=== PATIENT | male | born 1980 | race Caucasian/White ===

== ENCOUNTER → 2017-06-10 | Outpatient (CLI) | payer MEDICAID ==
[~2017-06-10] MED LIST: BUSP15TA60 PO; DEXT10TA9 PO; HYDR-3454 PO; ONDA8TAB6 PO
== END ==
LOC: CARD 10:57
PROVIDERS: ATTEND Internal Medicine Cardiovascular Disease
DX: R07.89 Other chest pain (principal); E66.8 Other obesity; E78.4 Other hyperlipidemia; Z72.0 Tobacco use
CPT/HCPCS: 93306

== ENCOUNTER → 2017-06-11 | Outpatient (CLI) | payer MEDICAID, MEDICARE ==
[~2017-06-11] MED LIST changes: +CATHETER FLUSH 10 ML SYR IV PRN; +REGADENOSON 0.4 MG/5 ML SYR (LEXISCAN) IV ONE
[2017-06-11 09:40] VITALS: BP 126/72
--- NOTE | 2017-06-11 22:41 | STRESS TEST ---
DATE OF SERVICE: 06/11/2017 RESTING AND POST REGADENOSON TECHNETIUM-99M TETROFOSMIN SPECT CT IMAGING Baseline images were carried out after injection of 10.6 mCi of technetium-99m tetrofosmin. This was followed by 0.4 mg regadenoson and 31 mCi of technetium-99m tetrofosmin for stress imaging. The electrocardiogram showed sinus rhythm at baseline and it did not change significantly with the regadenoson infusion. Overall, the patient tolerated the procedure well and did not report significant symptoms. Review of images at rest and following stress did not indicate any distinct perfusion defects consistent with significant myocardial ischemia or infarction. Gated images show normal global left ventricular systolic function with normal regional wall motion. Left ventricular ejection fraction is calculated to be 62%. Left ventricular end diastolic volume is 93 mL. CONCLUSIONS: 1. No evidence of significant myocardial ischemia or infarction on this study. 2. Normal regional wall motion. 3. Normal global left ventricular systolic function with a calculated ejection fraction of 62%. Job ID: [id number] DocumentID: [id number] Dictated Date: 06/11/2017 12:59:36 [employer] Date: 06/11/2017 19:14:09 Dictated By: GEOVANNA RODRIGUEZ MD, MA, FACP, FACC,
== END ==
LOC: CARD 08:30
PROVIDERS: ATTEND Internal Medicine Cardiovascular Disease
DX: R07.89 Other chest pain (principal); E66.8 Other obesity; R78.4 Finding of other drugs of addictive potential in blood; Z72.0 Tobacco use
CPT/HCPCS: 78452; 93017

== ENCOUNTER 2018-09-19 12:40 | Emergency (ER) | payer MEDICARE, MEDICAID ==
[~2018-09-19 12:40] MED LIST changes: -CATHETER FLUSH 10 ML SYR IV PRN; -REGADENOSON 0.4 MG/5 ML SYR (LEXISCAN) IV ONE
--- OUTSIDE RECORDS SUMMARY | 2018-09-21 09:25 | XMS REPORT ---
Author Author RUFUS NOBLES [facility] Address [address] [place] [address] Care Team Providers Care Industrial Maintenance Technician Name Role Phone MALLORIE RUFUS Unavailable PROBLEMS Type Condition ICD9-CM Code WPV51-SL Code Onset Dates Condition Status SNOMED Code Problem 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.00 Active 55772440 Problem Generalized anxiety disorder 300.02 Active 03427355 Problem Nondependent tobacco use disorder 305.1 Active 386183582 Problem Routine general medical examination at health care facility V70.0 Active 428539169 Problem 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 Active 08705372 Problem Hypertension, benign I10 Active 65170542 Problem Panic disorder F41.0 Active 018418893 Problem Generalized anxiety disorder F41.1 Active 03518697 Problem ADHD, predominantly inattentive type F90.0 Active 31187414 Problem Nicotine addiction F17.200 Active 84081077 Problem Mild intellectual disability F70 Active 33275789 ALLERGIES No Information ENCOUNTERS Encounter Location Date Diagnosis [facility] [id number] [place] [address] Jul, [facility] [id number] [place] [address] 45614- 5037 Jun, [facility] [id number] [place] [address] 22468- 6779 May, [facility] [id number] [place] [address] 02669- 7004 Apr, [facility] [address] [address] Apr, Encounter for immunization Z23 [facility] [id number] [place] [address] 67254- 8055 Apr, ADHD, predominantly inattentive type F90.0 ; Panic disorder F41.0 and Mild intellectual disability F70 [facility] [address] [address] Apr, Generalized anxiety disorder F41.1 [facility] [address] [address] Feb, [facility] [id number] [place] [address] 99935- 2395 Jan, [facility] [id number] [place] [address] 87955- 0866 Jan, Nicotine addiction F17.200 [facility] [id number] [place] [address] 63104- 9257 Jan, [facility] [id number] [place] [address] 67082- 8022 Dec, [facility] [id number] [place] [address] 05916- 3652 November, [facility] [id number] [place] [address] 69483- 6506 November, Panic disorder F41.0 ; Generalized anxiety disorder F41.1 ; ADHD, predominantly inattentive type F90.0 ; Mild intellectual disability F70 and Nicotine addiction F17.200 [facility] [address] [address] November, Hypertension, benign I10 and Swelling of knee joint, left M25.462 [facility] [address] [address] 7[address] November, Hypertension, benign I10 [facility] [id number] [place] [address] 01727- 5522 November, Hypertension, benign I10 [facility] [address] [address] 6990 November, Hypertension, benign I10 ; Visit for TB skin test Z11.1 and Encounter for immunization Z23 [facility] [address] [address] Mar, [facility] [id number] [place] [address] 05220- 2705 Feb, [facility] [address] [address] 3499 November, Generalized anxiety disorder F41.1 ; ADHD, predominantly inattentive type F90.0 ; Mild intellectual disability F70 and Nicotine addiction F17.200 [facility] [address] [address] Sep, Generalized anxiety disorder F41.1 ; ADHD, predominantly inattentive type F90.0 ; Mild intellectual disability F70 and Other seasonal allergic rhinitis J30.2 [facility] [address] [address] Aug, [facility] [id number] [place] [address]112 -2421 Jul, Acute suppurative otitis media of right ear without spontaneous rupture of tympanic membrane, recurrence not specified H66.001 and Other seasonal allergic rhinitis J30.2 [facility] [id number] [place] [address] 66245- 7824 Jul, ADHD, predominantly inattentive type F90.0 and Generalized anxiety disorder F41.1 [facility] [address] [address]- 7442 Jul, [facility] [id number] [place] [address] 84638- 6157 Jun, ADHD, predominantly inattentive type F90.0 and Generalized anxiety disorder F41.1 [facility] [address] [address] Jun, ADHD, predominantly inattentive type F90.0 ; Generalized anxiety disorder F41.1 and Mild intellectual disability F70 [address] [id number] [id number] May, Dental examination Z01.20 and Generalized chronic periodontitis K05.32 [facility] [id number] [place] [address] 79535- 1361 May, ADHD, predominantly inattentive type F90.0 and Generalized anxiety disorder F41.1 [facility] [id number] [place] [address] 17064- 6553 May, [facility] [id number] [place] [address] 30244- 7554 Apr, [facility] [id number] [place] [address] 35246- 3778 Apr, Generalized anxiety disorder F41.1 ; Attention deficit disorder F90.0 and Mild mental retardation F70 [facility] [id number] [place] [address] 57945- 2951 Apr, [facility] [id number] [place] [address] 45082- 2147 Apr, ADHD, predominantly inattentive type F90.0 and Generalized anxiety disorder F41.1 [facility] [id number] [place] [address] 94094- 7547 Feb, 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.00 and Anxiety state, unspecified 300.00 [facility] [address] [address]- 3969 Feb, [facility] [id number] [place] [address] 02654- 0903 Jan, [facility] [id number] [place] [address] 77318- 5182 Jan, 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.00 ; Anxiety state, unspecified 300.00 and 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 [facility] [address] [place] [address] 97515- 2920 Jan, [facility] [id number] [place] [address] 58954- 0805 Dec, [facility] [address] [address]- 4768 November, 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 ; Generalized anxiety disorder 300.02 ; 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.00 and 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 [facility] [id number] [address]- 7396 Oct, [facility] [id number] [place] [address] 10158- 5042 Oct, [facility] [address] [address]- 9662 Sep, [facility] [id number] [place] [address] 51970- 5655 Sep, [facility] [id number] [place] [address] 89921- 0169 Aug, [facility] [id number] [place] [address] 91106- 3490 Aug, [facility] [id number] [place] [address] 502860- 5008 Jun, [facility] [id number] [address]- 4637 Jun, [facility] [address] [address]- 2451 May, [facility] [id number] [address]- 2540 May, [facility] [address] [address]- 3936 Apr, [facility] [id number] [address]- 3966 Apr, [facility] [address] [address]- 2546 Jan, [facility] [place] [facility] [address] [id number] [place] [address]- 5896 Jan, [facility] [address] [id number] [place] [address]- 6578 November, [facility] [place] [facility] [address] [id number] [place] [address]- 2766 November, [facility] [place] [facility] [address] [id number] [place] [address]- 8684 November, [facility] [place] [facility] [address] [id number] [place] [address]- 7407 November, [facility] [place] [facility] [address] [id number] [place] [address]- 5589 Oct, [facility] [place] [facility] [address] [id number] [place] [address]- 9402 Oct, [facility] [place] [facility] [address] [id number] [place] [address]- 4151 Oct, [facility] [address] [id number] [place] [address]- 2769 Oct, [facility] [place] [facility] [address] [id number] [place] [address]- 7925 Sep, [facility] [place] [facility] [address] [id number] [place] [address]- 2201 Sep, [facility] [place] [facility] [address] [id number] [place] [address]- 4074 Sep, [facility] [place] [facility] [address] [id number] [place] [address]- 0423 Sep, [facility] [place] [facility] [address] [id number] [place] [address]- 8509 Sep, [facility] [place] [facility] [address] [id number] [place] [address]- 3616 Sep, [facility] [place] [facility] [address] [id number] [place] [address]- 0600 Sep, [facility] [place] [facility] [address] [id number] [place] [address]- 0316 Sep, [facility] [place] [facility] [address] [id number] [place] [address]- 9462 Sep, [facility] [place] [facility] [address] [id number] [place] [address]- 8968 Aug, [facility] [place] [facility] [address] [id number] [place] [address]- 0406 Aug, [facility] [place] [facility] [address] [id number] [place] [address]- 5721 Aug, [facility] [place] [facility] [address] [id number] [place] [address]- 1474 Aug, [facility] [place] [facility] [address] [id number] [place] [address]- 5698 Aug, [facility] [place] [facility] [address] [id number] [place] [address]- 7788 Aug, [facility] [place] [facility] [address] [id number] [place] [address]- 4592 Aug, [facility] [place] [facility] [address] [facility] [id number] [place] [address]- 7764 Aug, [facility] [place] [facility] [address] [id number] [place] [address]- 0433 Aug, [facility] [place] [facility] [address] [id number] [place] [address]- 7448 Aug, [facility] [place] [facility] [address] [id number] [place] [address]- 2779 Aug, [facility] [place] [facility] [address] [id number] [place] [address]- 2165 Aug, [facility] [place] [facility] [address] [facility] [id number] [place] [address]- 5209 Oct, [facility] [place] [facility] [address] [facility] [id number] [place] [address]- 3226 November, [facility] [address] [facility] [id number] [address]- 9246 May, [facility] [address] [facility] [id number] [place] [address]- 5566 Jan, [facility] [address] [facility] [id number] [place] [address]- 1348 May, IMMUNIZATIONS No Known Immunizations SOCIAL HISTORY Never Assessed REASON FOR VISIT adderall 07/15/2018 PLAN OF CARE VITAL SIGNS MEDICATIONS Medication Instructions Dosage Frequency Start Date End Date Duration Status Adderall 10 mg Orally 2 times a day for ADHD 1 tablet Jun, 28 days Active RESULTS No Results PROCEDURES No Known procedures INSTRUCTIONS MEDICATIONS ADMINISTERED No Known Medications MEDICAL (GENERAL) HISTORY Type Description Date Medical History Vasectomy Medical History 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; [facility]; [facility]
--- OUTSIDE RECORDS SUMMARY | 2018-09-21 09:26 | XMS REPORT ---
Author Author RUFUS NOBLES [facility] Address [address] [place] [address] Care Team Providers Care Airframe Technical Officer Name Role Phone MALLORIESAVRUFUS Unavailable PROBLEMS Type Condition ICD9-CM Code ZRH74-GE Code Onset Dates Condition Status SNOMED Code Problem 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.00 Active 65171933 Problem Generalized anxiety disorder 300.02 Active 23551432 Problem Nondependent tobacco use disorder 305.1 Active 538985164 Problem Routine general medical examination at health care facility V70.0 Active 937939618 Problem 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 Active 56945601 Problem Hypertension, benign I10 Active 54423634 Problem Panic disorder F41.0 Active 004020776 Problem Generalized anxiety disorder F41.1 Active 23420926 Problem ADHD, predominantly inattentive type F90.0 Active 09842228 Problem Nicotine addiction F17.200 Active 24200815 Problem Mild intellectual disability F70 Active 43863295 ALLERGIES No Information ENCOUNTERS Encounter Location Date Diagnosis [place] [address] [address] Jul, [facility] [place] [address] [place] [id number] [place] [address]- [address]59 May, [facility] [place] [id number] [place] [address]48- 8311 Apr, [facility] [place] [id number] [place] [address]18- 2233 Apr, Encounter for immunization Z23 [facility] [place] [address] [address] Apr, ADHD, predominantly inattentive type F90.0 ; Panic disorder F41.0 and Mild intellectual disability F70 [place] [address] [address]- 1997 Apr, Generalized anxiety disorder F41.1 [facility] [place] [address] [address] Feb, [facility] [place] [id number] [place] [address]352- 7537 Jan, [facility] [place] [address] [place] [address]32- 9103 Jan, Nicotine addiction F17.200 [facility] [place] [id number] [place] [address]184- 3135 Jan, [facility] [place] [id number] [place] [address] 62058- 6442 Dec, [facility] [place] [id number] [place] [address] 08457- 4871 November, [facility] [place] [id number] [place] [address] 56756- 4737 November, Panic disorder F41.0 ; Generalized anxiety disorder F41.1 ; ADHD, predominantly inattentive type F90.0 ; Mild intellectual disability F70 and Nicotine addiction F17.200 [facility] [place] [address] [place] [address]- 1967 November, Hypertension, benign I10 and Swelling of knee joint, left M25.462 [facility] [place] [address] [address] November, Hypertension, benign I10 [facility] [place] [address] [address] November, Hypertension, benign I10 [facility] [place] [id number] [place] [address] 49738- 9373 November, Hypertension, benign I10 ; Visit for TB skin test Z11.1 and Encounter for immunization Z23 [facility] [place] [address] [address] Mar, [place] [address] [address] Feb, [facility] [place] [id number] [place] [address] 30856- 5321 November, Generalized anxiety disorder F41.1 ; ADHD, predominantly inattentive type F90.0 ; Mild intellectual disability F70 and Nicotine addiction F17.200 [place] [address] [place] [address] 52191- 0718 Sep, Generalized anxiety disorder F41.1 ; ADHD, predominantly inattentive type F90.0 ; Mild intellectual disability F70 and Other seasonal allergic rhinitis J30.2 [facility] [place] [address] [place] [address]79- 6877 Aug, [facility] [address] [address] Jul, Acute suppurative otitis media of right ear without spontaneous rupture of tympanic membrane, recurrence not specified H66.001 and Other seasonal allergic rhinitis J30.2 [facility] [place] [address] [address] Jul, ADHD, predominantly inattentive type F90.0 and Generalized anxiety disorder F41.1 [place] [address] [address] Jul, [place] [address] [address] Jun, ADHD, predominantly inattentive type F90.0 and Generalized anxiety disorder F41.1 [facility] [place] [address] [address] Jun, ADHD, predominantly inattentive type F90.0 ; Generalized anxiety disorder F41.1 and Mild intellectual disability F70 [facility] [address] [id number] [id number] May, Dental examination Z01.20 and Generalized chronic periodontitis K05.32 [facility] [place] [address] [address] May, ADHD, predominantly inattentive type F90.0 and Generalized anxiety disorder F41.1 [facility] [place] [address] [address]- [address] May, [facility] [place] [address] [address] 8377 Apr, [facility] [place] [id number] [place] [address] 84926- 5316 Apr, Generalized anxiety disorder F41.1 ; Attention deficit disorder F90.0 and Mild mental retardation F70 [facility] [place] [id number] [place] [address] 71832- 4401 Apr, [facility] [place] [id number] [place] [address] 72220- 9477 Apr, ADHD, predominantly inattentive type F90.0 and Generalized anxiety disorder F41.1 [facility] [place] [address] [address] Feb, 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.00 and Anxiety state, unspecified 300.00 [facility] [place] [address] [address]- 9146 Feb, [facility] [place] [address], [place] [address]- 3814 Jan, [facility] [place] [address] [address]- 9097 Jan, 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.00 ; Anxiety state, unspecified 300.00 and 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 [facility] [place] [address] [address]- [address] Jan, [facility] [place] [address] [address]- 2696 Dec, [facility] [place] [address] [place] [address] 99072- 0839 November, 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 ; Generalized anxiety disorder 300.02 ; 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.00 and 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 [facility] [place] [address] [address] Oct, [facility] [address], [place] [address] 2546 Oct, [facility] [address] [place] [address] 63164- 4426 Sep, [facility] [address], [place] [address]- 1566 Sep, [facility] [address], [place] [address]- 5846 Aug, [facility] [place] [address] [address]- 6[address] Aug, [facility] [address] [address]- 7394 Jun, [facility] [place] [address] [address]- 3167 Jun, [facility] [address] [address]- 2546 May, [facility] [place] [address], [place] [address]- 5566 May, [facility] [address], [place] [address]- 2546 Apr, [facility] [address], [place] [address]- 2546 Apr, [facility] [address], [place] [address]- 2546 Jan, [facility] [address], [place] [address]- 2546 Jan, [facility] [address] [id number] [place] [address]- 3136 November, [facility] [address] [id number] [place] [address]- 9965 November, [facility] [place] [facility] [address] [id number] [place] [address]- 8786 November, [facility] [place] [facility] [address] [id number] [place] [address]- 8818 November, [facility] [place] [facility] [address] [id number] [place] [address]- 4485 Oct, [facility] [place] [facility] [address] [id number] [place] [address]- 9397 Oct, [facility] [place] [facility] [address] [id number] [place] [address]- 6020 Oct, [facility] [place] [facility] [address] [id number] [place] [address]- 1985 Oct, [facility] [address] [id number] [place] [address]- 2687 Sep, [facility] [place] [facility] [address] [id number] [place] [address]- 9137 Sep, [facility] [place] [facility] [address] [id number] [place] [address]- 8263 Sep, [facility] [place] [facility] [address] [id number] [place] [address]- 2865 Sep, [facility] [place] [facility] [address] [id number] [place] [address]- 6229 14 Sep, 2013 [facility] [place] [facility] [address] [id number] [place] [address]- 0017 Sep, [facility] [place] [facility] [address] [id number] [place] [address]- 6436 Sep, [facility] [place] [facility] [address] [id number] [place] [address]- 7790 Sep, [facility] [place] [facility] [address] [id number] [place] [address]- 9388 Sep, [facility] [place] [facility] [address] [id number] [place] [address]- 7913 Aug, [facility] [place] [facility] [address] [id number] [place] [address]- 6104 Aug, [facility] [place] [facility] [address] [id number] [place] [address]- 1851 Aug, [facility] [place] [facility] [address] [id number] [place] [address]- 0255 Aug, [facility] [place] [facility] [address] [id number] [place] [address]- 7138 Aug, [facility] [place] [facility] [address] [id number] [place] [address]- 9918 Aug, [facility] [place] [facility] [address] [id number] [place] [address]- 5226 Aug, [facility] [place] [facility] [address] [id number] [place] [address]- 3726 Aug, [facility] [place] [facility] [address] [facility] [id number] [place] [address]- 1333 Aug, [facility] [place] [facility] [address] [id number] [place] [address]- 8047 Aug, [facility] [place] [facility] [address] [facility] [id number] [place] [address]- 2546 Aug, [facility] [place] [facility] [address] [id number] [place] [address]- 5111 Aug, [facility] [place] [facility] [address] [id number] [place] [address]- 1369 Oct, [facility] [place] [facility] [address] [facility] [id number] [place] [address]- 6287 November, [facility] [place] [facility] [address] [facility] [id number] [place] [address]- 2353 May, [facility] [place] [address] [facility] [id number] [address]- 9161 Jan, [facility] [place] [address] [facility] [id number] [place] [address] May, IMMUNIZATIONS No Known Immunizations SOCIAL HISTORY Never Assessed REASON FOR VISIT adderall 05/20/2018 PLAN OF CARE VITAL SIGNS MEDICATIONS Medication Instructions Dosage Frequency Start Date End Date Duration Status Adderall 10 mg Orally 2 times a day for ADHD 1 tablet Apr, 28 days Active RESULTS No Results PROCEDURES No Known procedures INSTRUCTIONS MEDICATIONS ADMINISTERED No Known Medications MEDICAL (GENERAL) HISTORY Type Description Date Medical History Vasectomy Medical History 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
--- OUTSIDE RECORDS SUMMARY | 2018-09-21 09:26 | XMS REPORT ---
Author Author RUFUS NOBLES [facility] Address [address] [place] [address] Care Team Providers Care Ict Development Manager Name Role Phone [email or web address] Unavailable PROBLEMS Type Condition ICD9-CM Code JDR29-YH Code Onset Dates Condition Status SNOMED Code Problem 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.00 Active 84942765 Problem Generalized anxiety disorder 300.02 Active 26572469 Problem Nondependent tobacco use disorder 305.1 Active 481636710 Problem Routine general medical examination at health care facility V70.0 Active 326798372 Problem 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 Active 89730482 Problem Hypertension, benign I10 Active 71194918 Problem Panic disorder F41.0 Active 653671327 Problem Generalized anxiety disorder F41.1 Active 70832892 Problem ADHD, predominantly inattentive type F90.0 Active 86300898 Problem Nicotine addiction F17.200 Active 10547225 Problem Mild intellectual disability F70 Active 39300417 ALLERGIES No Information ENCOUNTERS Encounter Location Date Diagnosis [place] [address] [address] Jul, [place] [address] [place] [id number] [place] [address] May, [facility] [address] [id number] [place] [address]64- 0446 Apr, [facility] [address] [place] [id number] [place] [address]6957- 6841 Apr, Encounter for immunization Z23 [facility] [address] [address] Apr, ADHD, predominantly inattentive type F90.0 ; Panic disorder F41.0 and Mild intellectual disability F70 [place] [address] [address] Apr, Generalized anxiety disorder F41.1 [facility] [address] [address] Feb, [facility] [address] [place] [id number] [place] [address] 279[address]- 5471 Jan, [facility] [id number] [place] [address]- 1849 Jan, Nicotine addiction F17.200 [facility] [address] [place] [id number] [place] [address]- 8024 Jan, [facility] [address] [place] [id number] [place] [address] 70609- 9057 Dec, [facility] [address] [place] [id number] [place] [address] 69775- 1485 November, [facility] [address] [place] [id number] [place] [address]- 8500 November, Panic disorder F41.0 ; Generalized anxiety disorder F41.1 ; ADHD, predominantly inattentive type F90.0 ; Mild intellectual disability F70 and Nicotine addiction F17.200 [facility] [id number] [place] [address]- 6045 November, Hypertension, benign I10 and Swelling of knee joint, left M25.462 [facility] [address] [address] November, Hypertension, benign I10 [facility] [address] [address] 7[address] November, Hypertension, benign I10 [facility] [address] [place] [id number] [place] [address] 52031- 8945 November, Hypertension, benign I10 ; Visit for TB skin test Z11.1 and Encounter for immunization Z23 [facility] [address] [address] Mar, [place] [address] [address] 8[address] Feb, [facility] [address] [place] [id number] [place] [address] 59046- 2055 November, Generalized anxiety disorder F41.1 ; ADHD, predominantly inattentive type F90.0 ; Mild intellectual disability F70 and Nicotine addiction F17.200 [place] [id number] [place] [address]74- 8659 Sep, Generalized anxiety disorder F41.1 ; ADHD, predominantly inattentive type F90.0 ; Mild intellectual disability F70 and Other seasonal allergic rhinitis J30.2 [facility] [id number] [place] [address]58- 8058 Aug, [facility] [address] [address] Jul, Acute suppurative otitis media of right ear without spontaneous rupture of tympanic membrane, recurrence not specified H66.001 and Other seasonal allergic rhinitis J30.2 [facility] [address] [address] Jul, ADHD, predominantly inattentive type F90.0 and Generalized anxiety disorder F41.1 [place] [address] [address]- [address] Jul, [place] [address] [address] Jun, ADHD, predominantly inattentive type F90.0 and Generalized anxiety disorder F41.1 [facility] [address] [address] 140[address] Jun, ADHD, predominantly inattentive type F90.0 ; Generalized anxiety disorder F41.1 and Mild intellectual disability F70 [facility] [address] [id number] [id number] May, Dental examination Z01.20 and Generalized chronic periodontitis K05.32 [facility] [address] [address] May, ADHD, predominantly inattentive type F90.0 and Generalized anxiety disorder F41.1 [facility] [address] [address]- 0320 May, [facility] [address] [address]- 44[address] Apr, [facility] [address] [place] [id number] [place] [address]- 1969 Apr, Generalized anxiety disorder F41.1 ; Attention deficit disorder F90.0 and Mild mental retardation F70 [facility] [address] [place] [id number] [place] [address] 01541- 4546 Apr, [facility] [address] [place] [id number] [place] [address] 91457- 7438 Apr, ADHD, predominantly inattentive type F90.0 and Generalized anxiety disorder F41.1 [facility] [address] [address] Feb, 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.00 and Anxiety state, unspecified 300.00 [facility] [address] [address]- 8678 Feb, [facility] [address] [address]- 1031 Jan, [facility] [address] [address]- [address] Jan, 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.00 ; Anxiety state, unspecified 300.00 and 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 [facility] [address] [address]- 2821 Jan, [facility] [address] [address]- 0207 Dec, [facility] [address] [place] [address]90- 9437 November, 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 ; Generalized anxiety disorder 300.02 ; 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.00 and 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 [facility] [address] [address]- [address] Oct, [facility] [address] [address] 2546 Oct, [facility] [id number] [place] [address] 74265- 9406 Sep, [facility] [address] [address]- 7[address] Sep, [facility] [address] [address]- 4936 Aug, [facility] [address] [place] [address] [id number] [address]- 6056 Aug, [facility] [address] [place] [id number] [address]- 6284 Jun, [facility] [address] [address]- 5433 Jun, [facility] [address] [address]- 2546 May, [facility] [address] [address]- 6826 May, [facility] [address] [address]- 2546 Apr, [facility] [address] [address]- 2546 Apr, [facility] [address] [address]- 2546 Jan, [facility] [address] [address]- 2546 Jan, [facility] [address] [id number] [place] [address]- 2686 November, [facility] [address] [id number] [place] [address]- 5600 November, [facility] [place] [facility] [address] [id number] [place] [address]- 2346 November, [facility] [place] [facility] [address] [id number] [place] [address]- 7965 November, [facility] [place] [facility] [address] [id number] [place] [address]- 4628 Oct, [facility] [place] [facility] [address] [id number] [place] [address]- 5481 Oct, [facility] [place] [facility] [address] [id number] [place] [address]- 3601 Oct, [facility] [place] [facility] [address] [id number] [place] [address]- 4449 Oct, [facility] [address] [id number] [place] [address]- 4163 Sep, [facility] [place] [facility] [address] [id number] [place] [address]- 0559 Sep, [facility] [place] [facility] [address] [id number] [place] [address]- 1031 Sep, [facility] [place] [facility] [address] [id number] [place] [address]- 3546 Sep, [facility] [place] [facility] [address] [id number] [place] [address]- 7879 14 Sep, 2013 [facility] [place] [facility] [address] [id number] [place] [address]- 9354 Sep, [facility] [place] [facility] [address] [id number] [place] [address]- 3276 Sep, [facility] [place] [facility] [address] [id number] [place] [address]- 1167 Sep, [facility] [place] [facility] [address] [id number] [place] [address]- 6216 Sep, [facility] [place] [facility] [address] [id number] [place] [address]- 0188 Aug, [facility] [place] [facility] [address] [id number] [place] [address]- 8437 Aug, [facility] [place] [facility] [address] [id number] [place] [address]- 7698 Aug, [facility] [place] [facility] [address] [id number] [place] [address]- 1108 Aug, [facility] [place] [facility] [address] [id number] [place] [address]- 9809 Aug, [facility] [place] [facility] [address] [id number] [place] [address]- 9001 Aug, [facility] [place] [facility] [address] [id number] [place] [address]- 8840 Aug, [facility] [place] [facility] [address] [id number] [place] [address]- 2339 Aug, [facility] [place] [facility] [address] [facility] [id number] [place] [address]- 2227 Aug, [facility] [place] [facility] [address] [id number] [place] [address]- 3926 Aug, [facility] [place] [facility] [address] [facility] [id number] [place] [address]- 5997 Aug, [facility] [place] [facility] [address] [id number] [place] [address]- 0280 Aug, [facility] [place] [facility] [address] [id number] [place] [address]- 8898 Oct, [facility] [place] [facility] [address] [facility] [id number] [place] [address]- 7601 November, [facility] [place] [facility] [address] [facility] [id number] [place] [address]- 7176 May, [facility] [address] [facility] [id number] [address] Jan, [facility] [address] 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
--- OUTSIDE RECORDS SUMMARY | 2018-09-21 09:26 | XMS REPORT ---
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 Active 79490429 Problem Hypertension, benign I10 Active 24103800 Problem Panic disorder F41.0 Active 970007771 Problem Generalized anxiety disorder F41.1 Active 35293011 Problem ADHD, predominantly inattentive type F90.0 Active 63971878 Problem Nicotine addiction F17.200 Active 94242914 Problem Mild intellectual disability F70 Active 14388741 ALLERGIES No Information ENCOUNTERS Encounter Location Date Diagnosis [facility] [id number] [place] [address] 33723- 2443 Jul, [facility] [id number] [place] [address] 56471- 4776 May, [facility] [id number] [place] [address] 14230- 7140 Apr, Encounter for immunization Z23 [facility] [id number] [place] [address] 12597- 0516 Apr, ADHD, predominantly inattentive type F90.0 ; Panic disorder F41.0 and Mild intellectual disability F70 [facility] [id number] [place] [address] 21245- 0391 Apr, Generalized anxiety disorder F41.1 [place] [id number] [address] Feb, [facility] [address] [address] Jan, [facility] [address] [address] 9377 Jan, Nicotine addiction F17.200 [facility] [id number] [place] [address] 60821- 2938 Jan, [facility] [id number] [place] [address] 17109- 1308 Dec, [facility] [id number] [place] [address] 37878- 3156 November, [facility] [id number] [place] [address] 32522- 7219 November, Panic disorder F41.0 ; Generalized anxiety disorder F41.1 ; ADHD, predominantly inattentive type F90.0 ; Mild intellectual disability F70 and Nicotine addiction F17.200 [facility] [address] [address] 7[address] November, Hypertension, benign I10 and Swelling of knee joint, left M25.462 [facility] [address] [address] 8[address] November, Hypertension, benign I10 [facility] [id number] [address] 9763 November, Hypertension, benign I10 [facility] [address] [address] 8060 November, Hypertension, benign I10 ; Visit for TB skin test Z11.1 and Encounter for immunization Z23 [facility] [address] [address] Mar, [facility] [address] [address] 8153 Feb, [facility] [address] [address] 1715 November, Generalized anxiety disorder F41.1 ; ADHD, predominantly inattentive type F90.0 ; Mild intellectual disability F70 and Nicotine addiction F17.200 [facility] [address] [address] 7852 Sep, Generalized anxiety disorder F41.1 ; ADHD, predominantly inattentive type F90.0 ; Mild intellectual disability F70 and Other seasonal allergic rhinitis J30.2 [facility] [address] [address] Aug, [facility] [id number] [place] [address] 74082 -3043 Jul, Acute suppurative otitis media of right ear without spontaneous rupture of tympanic membrane, recurrence not specified H66.001 and Other seasonal allergic rhinitis J30.2 [place] [id number] [place] [address] 34108- 5355 Jul, ADHD, predominantly inattentive type F90.0 and Generalized anxiety disorder F41.1 [place] [id number] [place] [address] 80640- 8471 Jul, [place] [id number] [place] [address] 20291- 2707 Jun, ADHD, predominantly inattentive type F90.0 and Generalized anxiety disorder F41.1 [facility] [address] [address] 1204 Jun, ADHD, predominantly inattentive type F90.0 ; Generalized anxiety disorder F41.1 and Mild intellectual disability F70 [address] [id number] [id number] May, Dental examination Z01.20 and Generalized chronic periodontitis K05.32 [facility] [address] [address] 9203 May, ADHD, predominantly inattentive type F90.0 and Generalized anxiety disorder F41.1 [facility] [address] [address] 5184 May, [facility] [id number] [place] [address] 95449- 9398 Apr, [facility] [id number] [place] [address] 26188- 6325 Apr, Generalized anxiety disorder F41.1 ; Attention deficit disorder F90.0 and Mild mental retardation F70 [facility] [id number] [place] [address] 20289- 5795 Apr, [facility] [id number] [place] [address] 61457- 1274 Apr, ADHD, predominantly inattentive type F90.0 and Generalized anxiety disorder F41.1 [facility] [id number] [place] [address] 74528- 4404 Feb, 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.00 and Anxiety state, unspecified 300.00 [facility] [address] [address] 9152 Feb, [facility] [address] [place] [address] 90117- 7757 Jan, [facility] [address] [address]- 1093 Jan, 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.00 ; Anxiety state, unspecified 300.00 and 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 [facility] [address] [address]- 5052 Jan, [facility] [id number] [place] [address] 01523- 7179 Dec, [facility] [address] [address] 0197 November, 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 ; Generalized anxiety disorder 300.02 ; 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.00 and 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 [facility] [address] [address] 78[address] 14 Oct, 2014 [facility] [id number] [address] 5933 Oct, [facility] [address], [place] [address] 8778 Sep, [facility] [address] [facility] [id number] [place] [address] 75352- 8952 Sep, [facility] [id number] [place] [address] 91045- 3559 Aug, [facility] [id number] [place] [address] 87411- 1736 Aug, [facility] [id number] [place] [address] 40168- 0070 Jun, [facility] [address], [place] [address]- 9169 Jun, [facility] [address] [address]- 4244 May, [facility] [address] 9418 May, [facility] [address], [place] [address]- 3650 Apr, [facility] [id number] [address]- 2319 Apr, [facility] [address], [place] [address]- 3110 Jan, [facility] [id number] [address]- 5744 Jan, [facility] [address], [place] [address]- 2344 November, [facility] [place] [facility] [address] [id number] [place] [address]- 0471 November, [facility] [place] [facility] [address] [id number] [place] [address]- 7731 November, [facility] [place] [facility] [address] [id number] [place] [address]- 2731 November, [facility] [place] [facility] [address] [id number] [place] [address]- 7580 Oct, [facility] [place] [facility] [address] [id number] [place] [address]- 9168 Oct, [facility] [place] [facility] [address] [id number] [place] [address]- 2124 Oct, [facility] [place] [facility] [address] [id number] [place] [address]- 7152 Oct, [facility] [place] [facility] [address] [id number] [place] [address]- 2520 Sep, [facility] [place] [facility] [address] [id number] [place] [address]- 2202 Sep, [facility] [place] [facility] [address] [id number] [place] [address]- 1417 Sep, [facility] [place] [facility] [address] [id number] [place] [address]- 3387 Sep, [facility] [place] [facility] [address] [id number] [place] [address]- 6273 14 Sep, 2013 [facility] [place] [facility] [address] [id number] [place] [address]- 2810 10 Sep, 2013 [facility] [place] [facility] [address] [id number] [place] 8317 10 Sep, 2013 [facility] [place] [facility] [address] [id number] [place] [address]- 2537 03 Sep, 2013 [facility] [place] [facility] [address] [id number] [place] [address]- 5801 Sep, [facility] [place] [facility] [address] [id number] [place] [address]- 9290 Aug, [facility] [place] [facility] [address] [id number] [place] [address]- 3496 Aug, [facility] [place] [facility] [address] [facility] [id number] [place] [address]- 4039 Aug, [facility] [place] [facility] [address] [id number] [place] [address]- 6878 Aug, [facility] [place] [facility] [address] [id number] [place] [address]- 3181 Aug, [facility] [place] [facility] [address] [facility] [id number] [place] [address]- 4406 Aug, [facility] [place] [facility] [address] [facility] [id number] [place] [address]- 9606 Aug, [facility] [place] [facility] [address] [facility] [id number] [place] [address]- 5632 Aug, [facility] [place] [facility] [address] [facility] [id number] [place] [address]- 0870 Aug, [facility] [place] [facility] [address] [facility] [id number] [place] [address]- 5077 Aug, [facility] [place] [facility] [address] [facility] [id number] [place] [address]- 7775 Aug, [facility] [place] [facility] [address] [facility] [id number] [place] [address]- 0308 Aug, [facility] [place] [facility] [address] [facility] [id number] [place] [address]- 1877 Oct, [facility] [place] [facility] [address] [facility] [id number] [place] [address]- 0726 November, [facility] [place] [facility] [address] [facility] [id number] [address]- 9648 May, [facility] [address] [facility] [id number], [place] [address]- 2616 Jan, [facility] [address] [facility] [id number] 9643 May, IMMUNIZATIONS No Known Immunizations SOCIAL HISTORY Never Assessed REASON FOR VISIT INTAKE PLAN OF CARE Activity Details Follow Up Next Available Reason: F/U VITAL SIGNS MEDICATIONS Medication Instructions Dosage Frequency Start Date End Date Duration Status Zyrtec Allergy 10 mg Orally Once a day for allergies 1 capsule as needed Sep, Active Toprol XL 25 MG Orally Once a day for panic 1 tablet Sep, Active Chantix 1 MG Orally Twice a day 1 tablet 12h Jan, 30 day(s) Active Vitamin D3 2000 UNIT Orally Once a day 1 capsule 24h November, Jun, 30 day(s) Not-Taking BuPROPion HCl ER (SR) 150 MG Orally Once a day 1 tablet 24h November, Not-Taking Daypro 600 MG Orally 2 times a day 1 tablet 12h November, 30 days Not-Taking Adderall 10 mg Orally 2 times a day 1 tablet 12h Feb, 28 days Active RESULTS No Results PROCEDURES Procedure Date Ordered Result Body Site [facility] VISIT MENTAL HEALTH ESTAB PT Apr 22, 2018 Psych diagnostic evaluation, established patient Apr 22, 2018 visit needs to be added to the same day medical Apr 22, 2018 INSTRUCTIONS MEDICATIONS ADMINISTERED No Known Medications MEDICAL (GENERAL) HISTORY Type Description Date Medical History Vasectomy Medical History 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
--- OUTSIDE RECORDS SUMMARY | 2018-09-21 09:27 | XMS REPORT ---
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 Active 89568263 Problem Hypertension, benign I10 Active 08672424 Problem Panic disorder F41.0 Active 224194977 Problem Generalized anxiety disorder F41.1 Active 39619383 Problem ADHD, predominantly inattentive type F90.0 Active 80146818 Problem Nicotine addiction F17.200 Active 23311366 Problem Mild intellectual disability F70 Active 94729559 ALLERGIES No Information ENCOUNTERS Encounter Location Date Diagnosis [facility], [place] [id number] [place] [address] 48752- 5153 Apr, [facility], [place] [address] [place] [address] 27271- 0860 Apr, [facility], [place] [id number] [place] [address] 24879- 7831 Feb, [facility], [place] [id number] [place] [address] 38163- 1758 Jan, [facility], [place] [id number] [place] [address] 06782- 4651 Jan, Nicotine addiction F17.200 [facility], [place] [address], [place] [address] 8839 Jan, [facility], [place] [address] [place] [address] 5443 Dec, [place] [id number] [place] [address] 54524- 0231 November, [facility] [id number] [place] [address] 01937- 6568 November, Panic disorder F41.0 ; Generalized anxiety disorder F41.1 ; ADHD, predominantly inattentive type F90.0 ; Mild intellectual disability F70 and Nicotine addiction F17.200 [place] [id number] [place] [address] 72238- 7746 November, Hypertension, benign I10 and Swelling of knee joint, left M25.462 [place] [id number] [place] [address] 48041- 9920 November, Hypertension, benign I10 [place] [id number] [place] [address] 17863- 0753 November, Hypertension, benign I10 [place] [id number] [place] [address] 69911- 3150 November, Hypertension, benign I10 ; Visit for TB skin test Z11.1 and Encounter for immunization Z23 [place] [address] [place] [address] 61984- 4322 Mar, [place] [id number] [place] [address] 78540- 1967 Feb, [place] [id number] [place] [address] 99539- 4644 November, Generalized anxiety disorder F41.1 ; ADHD, predominantly inattentive type F90.0 ; Mild intellectual disability F70 and Nicotine addiction F17.200 [place] [address] [address] 6616 Sep, Generalized anxiety disorder F41.1 ; ADHD, predominantly inattentive type F90.0 ; Mild intellectual disability F70 and Other seasonal allergic rhinitis J30.2 [place] [address] [address] 4982 Aug, [facility] [address] [place] [address] 32211 -5151 Jul, Acute suppurative otitis media of right ear without spontaneous rupture of tympanic membrane, recurrence not specified H66.001 and Other seasonal allergic rhinitis J30.2 [facility], [place] [address] [place] [address] 56354- 2647 Jul, ADHD, predominantly inattentive type F90.0 and Generalized anxiety disorder F41.1 [place] [address] [place] [address] 79777- 3609 Jul, [facility], [place] [id number] [place] [address] 90173- 6850 Jun, ADHD, predominantly inattentive type F90.0 and Generalized anxiety disorder F41.1 [place] [address] [place] [address] 04093- 5060 Jun, ADHD, predominantly inattentive type F90.0 ; Generalized anxiety disorder F41.1 and Mild intellectual disability F70 [place] [id number] [address] May, Dental examination Z01.20 and Generalized chronic periodontitis K05.32 [place] [address] [place] [address] 80089- 1233 May, ADHD, predominantly inattentive type F90.0 and Generalized anxiety disorder F41.1 [facility], [place] [address] [place] [address] 65824- 0103 May, [place] [id number] [place] [address] 68696- 7348 Apr, [facility], [place] [address] [place] [address] 81025- 6862 Apr, Generalized anxiety disorder F41.1 ; Attention deficit disorder F90.0 and Mild mental retardation F70 [place] [address] [address] 7130 Apr, [facility], [place] [id number] [place] [address] 77329- 9352 Apr, ADHD, predominantly inattentive type F90.0 and Generalized anxiety disorder F41.1 [facility], [place] [id number] [place] [address] 875324- 6335 Feb, 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.00 and Anxiety state, unspecified 300.00 [facility], [place] [id number] [place] [address] 47619- 5420 Feb, [facility], [place] [id number] [place] [address] 44874- 1915 Jan, [facility], [place] [id number] [place] [address] 91258- 0769 Jan, 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.00 ; Anxiety state, unspecified 300.00 and 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 [facility], [place] [address] [place] [address] 15051- 2744 Jan, [facility], [place] [id number] [place] [address] 85747- 1319 Dec, [facility], [place] [address], [place] [address]- 8637 November, 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 ; Generalized anxiety disorder 300.02 ; 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.00 and 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 [facility], [place] [address] [place] [address]- 6792 Oct, [facility], [place] [id number] [place] [address] 82402860- 3614 Oct, [facility], [place] [address] 8845 Sep, [facility], [place] [id number] [place] [address] 74346- 2146 Sep, [facility] [place] [facility] [address] [id number] [place] [address]- 0296 Aug, [facility] [place] [facility] [address] [id number] [place] [address]- 3216 Aug, [facility] [place] [facility] [address] [id number] [place] [address]- 4329 Jun, [facility] [place] [facility] [address] [id number] [place] [address]- 8317 Jun, [facility] [place] [facility] [address] [id number] [place] [address]- 2977 May, [facility] [place] [facility] [address] [id number] [place] [address]- 0938 May, [facility] [place] [facility] [address] [id number] [place] [address]- 4605 Apr, [facility] [place] [facility] [address] [id number] [place] [address]- 3617 Apr, [facility] [place] [facility] [address] [id number] [place] [address]- 7999 Jan, [facility] [place] [facility] [address] [id number] [place] [address]- 8925 Jan, [facility] [place] [facility] [address] [id number] [place] [address]- 5747 November, [facility] [place] [facility] [address] [id number] [place] [address]- 6990 November, [facility] [place] [facility] [address] [id number] [place] [address]- 9991 November, [facility] [place] [facility] [address] [id number] [place] [address]- 7520 November, [facility] [place] [facility] [address] [id number] [place] [address]- 5591 Oct, [facility] [place] [facility] [address] [id number] [place] [address]- 9969 Oct, [facility] [address] [id number] [place] [address]- 5856 Oct, [facility] [place] [facility] [address] [id number] [place] [address]- 0856 Oct, [facility] [address] [id number] [place] [address]- 5475 Sep, [facility] [place] [facility] [address] [id number] [place] [address]- 4116 Sep, [facility] [place] [facility] [address] [id number] [place] [address]- 2665 Sep, [facility] [place] [facility] [address] [id number] [place] [address]- 9662 Sep, [facility] [place] [facility] [address] [id number] [place] [address]- 7458 Sep, [facility] [address] [id number] [place] [address]- 9568 Sep, [facility] [place] [facility] [address] [id number] [place] [address]- 1776 Sep, [facility] [address] [id number] [place] [address]- 3390 Sep, [facility] [place] [facility] [address] [id number] [place] [address]- 6861 Sep, [facility] [place] [facility] [address] [id number] [place] [address]- 0847 Aug, [facility] [place] [facility] [address] [id number] [place] [address]- 1314 Aug, [facility] [place] [facility] [address] [id number] [place] [address]- 2886 Aug, [facility] [place] [facility] [address] [id number] [place] [address]- 6270 Aug, [facility], [place] [address], [place] [address]- 7816 Aug, [facility], [place] [address], [place] [address]- 1996 Aug, [facility], [place] [address] 7652 Aug, [facility], [place] [address] 4590 Aug, [facility], [place] [address], [place] [address]- 4263 Aug, [facility], [place] [address] [place] [address] 40573- 5740 Aug, [facility], [place] [address] [place] [address] 58376- 8099 Aug, [facility], [place] [address], [place] [address]- 9952 Aug, [facility], [place] [address] [place] [address] 85350- 3032 Oct, [facility], [place] [address], [place] [address]- 1266 November, [facility], [place] [address], [place] [address]- 9105 May, [facility], [place] [address] [place] [address]- 1456 Jan, [facility], [place] [address], [place] [address]- 5306 May, IMMUNIZATIONS No Known Immunizations SOCIAL HISTORY Never Assessed REASON FOR VISIT adderall 03/20/2018 PLAN OF CARE VITAL SIGNS MEDICATIONS Medication [...] from head (occopital region) Surgical History Vasectomy 2015 Hospitalization History Psychiatric hospitalizations during childhood: [facility]; [facility]; [facility]
--- OUTSIDE RECORDS SUMMARY | 2018-09-21 09:27 | XMS REPORT ---
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 Active 61712683 Problem Hypertension, benign I10 Active 78745328 Problem Panic disorder F41.0 Active 710192562 Problem Generalized anxiety disorder F41.1 Active 85105784 Problem ADHD, predominantly inattentive type F90.0 Active 61719251 Problem Nicotine addiction F17.200 Active 75627182 Problem Mild intellectual disability F70 Active 83573659 ALLERGIES No Information ENCOUNTERS Encounter Location Date Diagnosis [facility] [id number] [place] [address] 85794- 4161 Apr, [facility] [address] [place] [address] 77443- 3183 Mar, [facility] [id number] [place] [address] 19768- 6102 Feb, [facility] [id number] [place] [address] 23045- 7532 Jan, [facility] [id number] [place] [address] 45967- 2909 Jan, Nicotine addiction F17.200 [facility] [address] [address]- 1751 Jan, [facility] [address] [address]- 0269 Dec, [place] [id number] [place] [address] 83849- 0478 November, [place] [id number] [place] [address] 97221- 3802 November, Panic disorder F41.0 ; Generalized anxiety disorder F41.1 ; ADHD, predominantly inattentive type F90.0 ; Mild intellectual disability F70 and Nicotine addiction F17.200 [place] [id number] [place] [address] 02512- 2160 November, Hypertension, benign I10 and Swelling of knee joint, left M25.462 [place] [id number] [place] [address] 42632- 5722 November, Hypertension, benign I10 [place] [id number] [place] [address] 10605- 0264 November, Hypertension, benign I10 [place] [id number] [place] [address] 84297- 8228 November, Hypertension, benign I10 ; Visit for TB skin test Z11.1 and Encounter for immunization Z23 [place] [address] [place] [address] 54242- 6712 Mar, [facility] [place] [id number] [place] [address] 46511- 0511 Feb, [place] [id number] [place] [address] 38605- 1689 November, Generalized anxiety disorder F41.1 ; ADHD, predominantly inattentive type F90.0 ; Mild intellectual disability F70 and Nicotine addiction F17.200 [place] [address] [address]- 5346 Sep, Generalized anxiety disorder F41.1 ; ADHD, predominantly inattentive type F90.0 ; Mild intellectual disability F70 and Other seasonal allergic rhinitis J30.2 [place] [address] [address]- 7413 Aug, [facility] [address] [place] [address] 36968 -1802 Jul, Acute suppurative otitis media of right ear without spontaneous rupture of tympanic membrane, recurrence not specified H66.001 and Other seasonal allergic rhinitis J30.2 [facility] [address] [place] [address] 90339- 5960 Jul, ADHD, predominantly inattentive type F90.0 and Generalized anxiety disorder F41.1 [place] [address] [place] [address] 91802- 0170 Jul, [facility] [id number] [place] [address] 56998- 2118 Jun, ADHD, predominantly inattentive type F90.0 and Generalized anxiety disorder F41.1 [facility] [address] [place] [address] 30225- 6920 Jun, ADHD, predominantly inattentive type F90.0 ; Generalized anxiety disorder F41.1 and Mild intellectual disability F70 [place] [id number] [address] May, Dental examination Z01.20 and Generalized chronic periodontitis K05.32 [place] [address] [place] [address] 74663- 0685 May, ADHD, predominantly inattentive type F90.0 and Generalized anxiety disorder F41.1 [facility] [address] [place] [address] 07558- 7775 May, [place] [id number] [place] [address] 36191- 6254 Apr, [facility] [address] [place] [address] 41335- 9994 Apr, Generalized anxiety disorder F41.1 ; Attention deficit disorder F90.0 and Mild mental retardation F70 [place] [address] 8582 Apr, [facility] [id number] [place] [address] 83739- 8163 Apr, ADHD, predominantly inattentive type F90.0 and Generalized anxiety disorder F41.1 [facility] [id number] [place] [address] 023326- 3898 Feb, 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.00 and Anxiety state, unspecified 300.00 [facility] [id number] [place] [address] 82802- 5353 Feb, [facility] [id number] [place] [address] 98597- 5262 Jan, [facility] [id number] [place] [address] 40930- 8605 Jan, 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.00 ; Anxiety state, unspecified 300.00 and 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 [facility] [address] [place] [address] 29974- 8756 Jan, [facility] [id number] [place] [address] 27891- 9247 Dec, [facility] [address] [address]- 6330 November, 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 ; Generalized anxiety disorder 300.02 ; 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.00 and 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 [facility] [address] [address]- 0373 Oct, [facility] [id number] [place] [address] 50667989- 2174 Oct, [facility] [address] [address] 9127 Sep, [facility] [id number] [place] [address] 41350- 6644 Sep, [facility] [place] [facility] [address] [id number] [place] [address]- 7875 Aug, [facility] [place] [facility] [address] [id number] [place] [address]- 2616 Aug, [facility] [place] [facility] [address] [id number] [place] [address]- 0614 Jun, [facility] [place] [facility] [address] [id number] [place] [address]- 2717 Jun, [facility] [place] [facility] [address] [id number] [place] [address]- 5976 May, [facility] [place] [facility] [address] [id number] [place] [address]- 4904 May, [facility] [place] [facility] [address] [id number] [place] [address]- 7189 Apr, [facility] [place] [facility] [address] [id number] [place] [address]- 6010 Apr, [facility] [place] [facility] [address] [id number] [place] [address]- 6209 Jan, [facility] [place] [facility] [address] [id number] [place] [address]- 9626 Jan, [facility] [place] [facility] [address] [id number] [place] [address]- 0205 November, [facility] [place] [facility] [address] [id number] [place] [address]- 2500 November, [facility] [place] [facility] [address] [id number] [place] [address]- 9217 November, [facility] [place] [facility] [address] [id number] [place] [address]- 0027 November, [facility] [place] [facility] [address] [id number] [place] [address]- 4780 Oct, [facility] [place] [facility] [address] [id number] [place] [address]- 3654 Oct, [facility] [address] [id number] [place] [address]- 5726 Oct, [facility] [place] [facility] [address] [id number] [place] [address]- 0426 Oct, [facility] [address] [id number] [place] [address]- 5116 Sep, [facility] [place] [facility] [address] [id number] [place] [address]- 0472 Sep, [facility] [place] [facility] [address] [id number] [place] [address]- 7121 Sep, [facility] [place] [facility] [address] [id number] [place] [address]- 5402 Sep, [facility] [place] [facility] [address] [id number] [place] [address]- 1663 Sep, [facility] [address] [id number] [place] [address]- 2823 Sep, [facility] [place] [facility] [address] [id number] [place] [address]- 5967 Sep, [facility] [address] [id number] [place] [address]- 8843 Sep, [facility] [place] [facility] [address] [id number] [place] [address]- 8330 Sep, [facility] [place] [facility] [address] [id number] [place] [address]- 5216 Aug, [facility] [place] [facility] [address] [id number] [place] [address] Aug, [facility] [place] [facility] [address] [id number] [place] [address] Aug, [facility] [place] [facility] [address] [id number] [place] [address] Aug, [facility] [address] [address] Aug, [facility] [address] [address] Aug, [facility] [address] [address] Aug, [facility] [address] [address] Aug, [facility] [address] [address] Aug, [facility] [id number] [place] [address] Aug, [facility] [id number] [place] [address] Aug, [facility] [address] [address] Aug, [facility] [id number] [place] [address] Oct, [facility] [address] [address] November, [facility] [address] [address] May, [facility] [address] [address] Jan, [facility] [address] [address] May, IMMUNIZATIONS No Known Immunizations SOCIAL HISTORY Never Assessed REASON FOR VISIT adderall 02/18/2018 PLAN OF CARE VITAL SIGNS MEDICATIONS Medication Instructions Dosage Frequency Start Date End Date Duration Status Adderall 10 mg Orally 2 times a day 1 tablet 12h 30 Jan, 2018 28 days Active RESULTS No Results PROCEDURES No Known procedures INSTRUCTIONS MEDICATIONS ADMINISTERED No Known Medications MEDICAL (GENERAL) HISTORY Type Description Date Medical History Vasectomy Medical History 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; [facility]; [facility]
--- OUTSIDE RECORDS SUMMARY | 2018-09-21 09:27 | XMS REPORT ---
Author Author DAYAMI HOLGUIN Organization [facility] Address [address] [place] [address] Care Team Providers Care Lease Administrator Name Role Phone DAYAMI HOLGUIN Unavailable PROBLEMS Type Condition ICD9-CM Code EUL49-ZN Code Onset Dates Condition Status SNOMED Code Problem 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.00 Active 84540541 Problem Generalized anxiety disorder 300.02 Active 55041188 Problem Nondependent tobacco use disorder 305.1 Active 583711422 Problem Routine general medical examination at health care facility V70.0 Active 481000225 Problem 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 Active 67679609 Problem Hypertension, benign I10 Active 78671071 Problem Panic disorder F41.0 Active 005054775 Problem Generalized anxiety disorder F41.1 Active 49471380 Problem ADHD, predominantly inattentive type F90.0 Active 39754830 Problem Nicotine addiction F17.200 Active 94965342 Problem Mild intellectual disability F70 Active 20958877 ALLERGIES Substance Reaction Event Type Date Status Strattera urinary retention Drug Allergy Jan, Active ENCOUNTERS Encounter Location Date Diagnosis [facility] [address] [address] Apr, [facility] [address] [address] Mar, [facility] [id number] [place] [address]87- 0667 Feb, [facility] [id number] [place] [address] 48762- 6775 Jan, [facility] [id number] [place] [address] 17215- 2592 Jan, Nicotine addiction F17.200 [facility] [id number] [place] [address] 32643- 6040 Jan, [facility] [address] [address] Dec, [facility] [id number] [address] November, [facility] [address] [address] November, Panic disorder F41.0 ; Generalized anxiety disorder F41.1 ; ADHD, predominantly inattentive type F90.0 ; Mild intellectual disability F70 and Nicotine addiction F17.200 [facility] [address] [place] [address]239- 9638 November, Hypertension, benign I10 and Swelling of knee joint, left M25.462 [facility] [address] [address] November, Hypertension, benign I10 [facility] [id number] [place] [address] 81298- 4039 November, Hypertension, benign I10 [facility] [id number] [place] [address] 53046- 7779 November, Hypertension, benign I10 ; Visit for TB skin test Z11.1 and Encounter for immunization Z23 [facility] [address] [address] Mar, [facility] [id number] [address] Feb, [facility] [address] [address] November, Generalized anxiety disorder F41.1 ; ADHD, predominantly inattentive type F90.0 ; Mild intellectual disability F70 and Nicotine addiction F17.200 [facility] [address] [address] Sep, Generalized anxiety disorder F41.1 ; ADHD, predominantly inattentive type F90.0 ; Mild intellectual disability F70 and Other seasonal allergic rhinitis J30.2 [facility] [address] [address] Aug, [facility] [id number] [place] [address]237 [address]27 Jul, Acute suppurative otitis media of right ear without spontaneous rupture of tympanic membrane, recurrence not specified H66.001 and Other seasonal allergic rhinitis J30.2 [facility] [address] [place] [address] 04168- 8679 Jul, ADHD, predominantly inattentive type F90.0 and Generalized anxiety disorder F41.1 [facility] [id number] [place] [address] 73075- 2402 Jul, [facility] [id number] [place] [address] 27761- 5732 Jun, ADHD, predominantly inattentive type F90.0 and Generalized anxiety disorder F41.1 [facility] [id number] [place] [address] 26157- 8422 Jun, ADHD, predominantly inattentive type F90.0 ; Generalized anxiety disorder F41.1 and Mild intellectual disability F[address] [id number] [id number] May, Dental examination Z01.20 and Generalized chronic periodontitis K05.32 [facility] [address] [place] [address] 33913- 7922 May, ADHD, predominantly inattentive type F90.0 and Generalized anxiety disorder F41.1 [facility] [address] [address] May, [facility] [id number] [place] [address] 47696- 8404 Apr, [facility] [id number] [place] [address] 26932- 5425 Apr, Generalized anxiety disorder F41.1 ; Attention deficit disorder F90.0 and Mild mental retardation F70 [facility] [address] [address] Apr, [facility] [id number] [place] [address] 00500- 3422 Apr, ADHD, predominantly inattentive type F90.0 and Generalized anxiety disorder F41.1 [facility] [id number] [place] [address] 68953- 2608 Feb, 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.00 and Anxiety state, unspecified 300.00 [facility] [id number] [place] [address] 09003- 0440 Feb, [facility] [id number] [place] [address] 63505- 2405 Jan, [facility] [id number] [place] [address] 39729- 4827 Jan, 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.00 ; Anxiety state, unspecified 300.00 and 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 [facility] [address] [place] [address] 29604- 5693 Jan, [facility] [id number] [place] [address] 49996- 2184 Dec, [facility] [address] [address] November, 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 ; Generalized anxiety disorder 300.02 ; 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.00 and 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 [facility] [address] [address] 2665 Oct, [facility] [id number] [place] [address] 11350- 8200 Oct, [facility] [address] [address]- 5925 Sep, [facility] [id number] [place] [address] Sep, [facility] [address] [id number] [place] [address] Aug, [facility] [place] [facility] [address] [id number] [place] [address]- 3966 Aug, [facility] [address] [id number] [place] [address]- 2749 Jun, [facility] [place] [facility] [address] [id number] [place] [address]- 1303 Jun, [facility] [place] [facility] [address] [id number] [place] [address]- 7625 May, [facility] [place] [facility] [address] [id number] [place] [address]- 3386 May, [facility] [place] [facility] [address] [id number] [place] [address]- 1355 Apr, [facility] [place] [facility] [address] [id number] [place] [address]- 7090 Apr, [facility] [place] [facility] [address] [id number] [place] [address]- 5242 Jan, [facility] [place] [facility] [address] [id number] [place] [address]- 9498 Jan, [facility] [place] [facility] [address] [id number] [place] [address]- 4826 November, [facility] [place] [facility] [address] [id number] [place] [address]- 2546 November, [facility] [place] [facility] [address] [id number] [place] [address]- 4476 November, [facility] [place] [facility] [address] [id number] [place] [address]- 2546 November, [facility] [place] [facility] [address] [id number] [place] [address]- 1854 Oct, [facility] [place] [facility] [address] [id number] [place] [address]- 8298 Oct, [facility] [place] [facility] [address] [id number] [place] [address]- 4678 Oct, [facility] [place] [facility] [address] [id number] [place] [address]- 8397 Oct, [facility] [place] [facility] [address] [id number] [place] [address]- 9221 Sep, [facility] [place] [facility] [address] [id number] [place] [address]- 2884 Sep, [facility] [place] [facility] [address] [id number] [place] [address]- 7940 Sep, [facility] [place] [facility] [address] [id number] [place] [address]- 8658 Sep, [facility] [place] [facility] [address] [id number] [place] [address]- 2513 Sep, [facility] [place] [facility] [address] [id number] [place] [address]- 4463 Sep, [facility] [place] [facility] [address] [id number] [place] [address]- 3021 Sep, [facility] [place] [facility] [address] [id number] [place] [address]- 9959 Sep, [facility] [place] [facility] [address] [id number] [place] [address]- 3690 Sep, [facility] [place] [facility] [address] [id number] [place] [address]- 1138 Aug, [facility] [place] [facility] [address] [id number] [place] [address]- 5098 Aug, [facility] [place] [facility] [address] [id number] [place] [address]- 6591 Aug, [facility] [place] [facility] [address] [address]- 5049 Aug, [facility] [address] [address]- 5661 Aug, [facility] [address] [address] Aug, [facility] [address] [address] Aug, [facility] [address] [address]- 4050 Aug, [facility] [id number] [place] [address] 661040- 6234 Aug, [facility] [address] [address] Aug, [facility] [address] [address]- 4063 Aug, [facility] [address] [address]- 8331 Aug, [facility] [address] [address]- 9011 Oct, [facility] [address] [address]- 1740 November, [facility] [address] [address]- 9678 May, [facility] [address] [address]- 3091 Jan, [facility] [address] [address] May, IMMUNIZATIONS No Known Immunizations SOCIAL HISTORY Never Assessed REASON FOR VISIT Requests return call/ PLAN OF CARE VITAL SIGNS MEDICATIONS Medication Instructions Dosage Frequency Start Date End Date Duration Status Chantix 1 MG 1/2 tablet daily on days 1-3, 1/2 tablet twice daily on days 4 -7, take 1 tablet twice daily thereafter Jan, Feb, Active Chantix 1 MG Orally Twice a day 1 tablet 12h Jan, 30 day(s) Active RESULTS No Results PROCEDURES No Known procedures INSTRUCTIONS MEDICATIONS ADMINISTERED No Known Medications MEDICAL (GENERAL) HISTORY Type Description Date Medical History Vasectomy Medical History 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
--- OUTSIDE RECORDS SUMMARY | 2018-09-21 09:27 | XMS REPORT ---
Author Author DAYAMI HOLGUIN Organization 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 [id number] [place] [address] 72803- 9758 Jul, [facility] [id number] [place] [address] 96483- 3582 May, [facility] [id number] [place] [address] 65709- 0931 Apr, Encounter for immunization Z23 [facility] [id number] [place] [address] 42205- 9621 Apr, ADHD, predominantly inattentive type F90.0 ; Panic disorder F41.0 and Mild intellectual disability F70 [facility] [id number] [place] [address] 28537- 4949 Apr, Generalized anxiety disorder F41.1 [facility] [address] [place] [address]- 7195 Feb, [facility] [id number] [place] [address] 07125- 4516 Jan, [facility] [id number] [place] [address] 34339- 8643 Jan, Nicotine addiction F17.200 [facility] [id number] [place] [address] 47633- 2787 Jan, [facility] [id number] [place] [address] 97573- 7274 Dec, [facility] [id number] [place] [address] 33775- 5786 November, [facility] [id number] [place] [address] 31240- 7884 November, Panic disorder F41.0 ; Generalized anxiety disorder F41.1 ; ADHD, predominantly inattentive type F90.0 ; Mild intellectual disability F70 and Nicotine addiction F17.200 [facility] [id number] [place] [address] 88654- 8980 November, Hypertension, benign I10 and Swelling of knee joint, left M25.462 [facility] [address] [address] November, Hypertension, benign I10 [facility] [id number] [place] [address] 71279- 1592 November, Hypertension, benign I10 [facility] [address] [address] 7124 November, Hypertension, benign I10 ; Visit for TB skin test Z11.1 and Encounter for immunization Z23 [facility] [address] [address] 65[address] Mar, [facility] [id number] [place] [address] 41649- 0176 Feb, [facility] [address] [address]598 November, Generalized anxiety disorder F41.1 ; ADHD, predominantly inattentive type F90.0 ; Mild intellectual disability F70 and Nicotine addiction F17.200 [place] [address] [address] Sep, Generalized anxiety disorder F41.1 ; ADHD, predominantly inattentive type F90.0 ; Mild intellectual disability F70 and Other seasonal allergic rhinitis J30.2 [facility] [address] [address] 1508 Aug, [facility] [id number] [place] [address] 44945 -3070 Jul, Acute suppurative otitis media of right ear without spontaneous rupture of tympanic membrane, recurrence not specified H66.001 and Other seasonal allergic rhinitis J30.2 [place] [id number] [place] [address] 24553- 1059 Jul, ADHD, predominantly inattentive type F90.0 and Generalized anxiety disorder F41.1 [place] [id number] [place] [address] 96200- 6584 Jul, [facility] [id number] [place] [address] 83718- 9131 Jun, ADHD, predominantly inattentive type F90.0 and Generalized anxiety disorder F41.1 [place] [id number] [place] [address] 97396- 5583 Jun, ADHD, predominantly inattentive type F90.0 ; Generalized anxiety disorder F41.1 and Mild intellectual disability F70 [address] [id number] [id number] May, Dental examination Z01.20 and Generalized chronic periodontitis K05.32 [place] [id number] [place] [address] 50998- 3407 May, ADHD, predominantly inattentive type F90.0 and Generalized anxiety disorder F41.1 [facility] [id number] [address] 1346 May, [facility] [id number] [place] [address] 60904- 9740 Apr, [facility] [address] [place] [address]- 3541 Apr, Generalized anxiety disorder F41.1 ; Attention deficit disorder F90.0 and Mild mental retardation F70 [facility] [address] [address]- 7530 Apr, [facility] [id number] [place] [address] 54320- 7462 Apr, ADHD, predominantly inattentive type F90.0 and Generalized anxiety disorder F41.1 [facility] [address] [place] [address] 12488- 1584 Feb, 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.00 and Anxiety state, unspecified 300.00 [facility] [address], [place] [address]- 9912 Feb, [facility] [id number] [place] [address] 08117- 3575 Jan, 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 [id number] [address]- 9522 Jan, [facility] [address], [place] [address]- 0755 Dec, 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 [facility] [place] [facility] [address] [id number] [place] [address]- 7132 14 Oct, 2014 [facility] [place] [facility] [address] [id number] [place] [address]- 2984 Oct, [facility] [place] [facility] [address] [facility] [id number] [place] [address] Sep, [facility] [place] [facility] [address] [facility] [id number] [place] [address]- 5218 Sep, [facility] [place] [facility] [address] [facility] [id number] [place] [address]- 7532 Aug, [facility] [place] [facility] [address] [facility] [id number] [place] [address]19 Aug, [facility] [place] [facility] [address] [facility] [id number] [place] [address]- 6201 Jun, [facility] [place] [facility] [address] [facility] [id number] [address]- 4814 Jun, [facility] [place] [facility] [address] [facility] [id number] [place] [address]- 2271 May, [facility] [place] [facility] [address] [facility] [id number] [place] [address]- 5352 May, [facility] [place] [facility] [id number] [address]- 5772 Apr, [facility] [place] [facility] [address] [facility] [id number], [place] [address]- 6667 Apr, [facility] [place] [facility] [address] [facility] [id number] [place] [address]- 3383 Jan, [facility] [place] [facility] [address] [facility] [id number] [address]- 6048 Jan, [facility] [place] [facility] [id number] [address]- 2944 November, [facility] [place] [facility] [address] [facility] [id number] [place] [address]- 0641 November, [facility] [address] [id number] [place] [address]- 4578 November, [facility] [address] [id number] [place] [address]- 5107 November, [facility] [address] [id number] [place] [address]- 4227 Oct, [facility] [address] [id number] [place] [address]- 6711 Oct, [facility] [address] [id number] [place] [address]- 9892 Oct, [facility] [address] [id number] [place] [address]- 3901 Oct, [facility] [address] [id number] [place] [address]- 1771 Sep, [facility] [address] [id number] [place] [address]- 3683 Sep, [facility] [address] [id number] [place] [address]- 8081 Sep, [facility] [address] [id number] [place] [address]- 7366 Sep, [facility] [place] [facility] [address] [id number] [place] [address]- 8357 14 Sep, 2013 [facility] [place] [facility] [address] [id number] [place] [address]- 4710 Sep, [facility] [place] [facility] [address] [id number] [place] [address]- 7306 Sep, [facility] [place] [facility] [address] [id number] [place] [address]- 1020 Sep, [facility] [place] [facility] [address] [id number] [place] [address]- 4440 Sep, [facility] [place] [facility] [address] [id number] [place] [address]- 2874 Aug, [facility] [place] [facility] [address] [id number] [place] [address]- 3336 Aug, [facility] [place] [facility] [address] [id number] [place] [address]- 9996 Aug, [facility] [place] [facility] [address] [id number] [place] [address]- 1436 Aug, [facility] [place] [facility] [address] [id number] [place] [address]- 4981 Aug, [facility] [place] [facility] [address] [id number] [place] [address]- 9627 Aug, [facility] [place] [facility] [address] [id number] [place] [address]- 2796 Aug, [facility] [place] [facility] [address] [id number] [place] [address]- 1050 Aug, [facility] [place] [facility] [address] [id number] [place] [address]- 3248 Aug, [facility] [place] [facility] [address] [id number] [place] [address]- 5803 Aug, [facility] [place] [facility] [address] [id number] [place] [address]- 4740 Aug, [facility] [place] [facility] [address] [id number] [place] [address]- 4569 Aug, [facility] [place] [facility] [address] [id number] [place] [address]- 2345 Oct, [facility] [place] [facility] [address] [id number] [place] [address]- 4834 November, [facility] [place] [facility] [address] [id number] [place] [address]- 4958 May, [facility] [place] [facility] [address] [facility] [id number] [place] [address] [address] Jan, [facility] [address] [facility] [id number] [place] [address]- 7555 May, IMMUNIZATIONS Vaccine Route Administration Date Status HEP B (ADULT) IM Intramuscular Apr 22, 2018 Administered SOCIAL HISTORY Never Assessed REASON FOR VISIT Immunization--ABoggsLPN PLAN OF CARE VITAL SIGNS MEDICATIONS Unknown Medications RESULTS No Results PROCEDURES Procedure Date Ordered Result Body Site HEP B (ADULT) Apr 22, 2018 ADMN HEP B VAC NO FEE SCHD SAME DAY Apr 22, 2018 SINGLE IMMUNIZATION ADMIN Apr 22, 2018 INSTRUCTIONS MEDICATIONS ADMINISTERED No Known Medications MEDICAL (GENERAL) HISTORY Type Description Date Medical History Vasectomy Medical History 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
--- OUTSIDE RECORDS SUMMARY | 2018-09-21 09:28 | XMS REPORT ---
Author Author RUFUS NOBLES [facility] Address [address] [place] [address] Care Team Providers Care Assistance Coordinator Name Role Phone MALLORIE RUFUS Unavailable PROBLEMS Type Condition ICD9-CM Code JSD19-BN Code Onset Dates Condition Status SNOMED Code Problem 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.00 Active 72443404 Problem Generalized anxiety disorder 300.02 Active 87318554 Problem Nondependent tobacco use disorder 305.1 Active 072789930 Problem Routine general medical examination at health care facility V70.0 Active 961369845 Problem 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 Active 14662791 Problem Hypertension, benign I10 Active 44545774 Problem Panic disorder F41.0 Active 345813549 Problem Generalized anxiety disorder F41.1 Active 11527777 Problem ADHD, predominantly inattentive type F90.0 Active 97955535 Problem Nicotine addiction F17.200 Active 24856908 Problem Mild intellectual disability F70 Active 56217752 ALLERGIES Substance Reaction Event Type Date Status Strattera urinary retention Drug Allergy November, Active ENCOUNTERS Encounter Location Date Diagnosis [facility] [id number] [place] [address] 42759- 7721 Mar, [facility] [address] [address] Jan, [facility] [id number], [place] [address] 9788 Jan, Nicotine addiction F17.200 [facility] [id number] [place] [address] 19353- 9840 Jan, [facility] [address] [address] Dec, [facility] [id number] [place] [address] 27281- 0927 November, [facility] [id number] [place] [address] 15207- 5490 November, Panic disorder F41.0 ; Generalized anxiety disorder F41.1 ; ADHD, predominantly inattentive type F90.0 ; Mild intellectual disability F70 and Nicotine addiction F17.200 [facility] [id number] [place] [address] 99283- 0840 November, Hypertension, benign I10 and Swelling of knee joint, left M25.462 [facility] [id number] [place] [address] 72483- 5291 November, Hypertension, benign I10 [id number] [place] [address] 31388- 4430 November, Hypertension, benign I10 [address] [facility] [id number] [place] [address] 80845- 1770 November, Visit for TB skin test Z11.1 ; Hypertension, benign I10 and Encounter for immunization Z23 [facility] [id number] [place] [address] 25554- 4540 Mar, [facility] [id number] [place] [address] 42237- 3001 Feb, [facility] [id number] [place] [address] 53301- 3576 November, Generalized anxiety disorder F41.1 ; ADHD, predominantly inattentive type F90.0 ; Mild intellectual disability F70 and Nicotine addiction F17.200 [facility] [id number] [place] [address] 39940- 2343 Sep, Generalized anxiety disorder F41.1 ; ADHD, predominantly inattentive type F90.0 ; Mild intellectual disability F70 and Other seasonal allergic rhinitis J30.2 [facility] [address] [place] [address] 56620- 6028 Aug, [facility] [id number] [place] [address] 89761 -1423 Jul, Acute suppurative otitis media of right ear without spontaneous rupture of tympanic membrane, recurrence not specified H66.001 and Other seasonal allergic rhinitis J30.2 [address] [place] [address] 48379- 7842 Jul, ADHD, predominantly inattentive type F90.0 and Generalized anxiety disorder F41.1 [place] [id number] [place] [address] 24074- 7446 Jul, [facility] [id number] [place] [address] 86660- 3219 Jun, ADHD, predominantly inattentive type F90.0 and Generalized anxiety disorder F41.1 [place] [facility] [id number] [place] [address] 14042- 9345 Jun, ADHD, predominantly inattentive type F90.0 ; Generalized anxiety disorder F41.1 and Mild intellectual disability F70 [address] [id number] [id number] May, Dental examination Z01.20 and Generalized chronic periodontitis K05.32 [address] [facility] [id number] [place] [address] 84153- 9430 May, ADHD, predominantly inattentive type F90.0 and Generalized anxiety disorder F41.1 [address] [place] [address] 04920- 0228 May, [facility] [id number] [place] [address] 63963- 8572 Apr, [facility] [id number] [place] [address] 26817- 6512 Apr, Generalized anxiety disorder F41.1 ; Attention deficit disorder F90.0 and Mild mental retardation F70 [facility] [address] [place] [address] 70370- 9392 07 Apr, 2015 [facility] [id number] [place] [address] 00846- 0632 Apr, ADHD, predominantly inattentive type F90.0 and Generalized anxiety disorder F41.1 [facility] [id number] [place] [address] 161831- 3203 Feb, 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.00 and Anxiety state, unspecified 300.00 [facility] [id number] [place] [address] 72147- 0507 Feb, [facility] [id number] [place] [address] 131817- 0162 Jan, [facility] [id number] [place] [address] 323393- 1862 Jan, 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.00 ; Anxiety state, unspecified 300.00 and 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 [facility] [id number] [place] [address] 58704- 2684 Jan, [facility] [id number] [place] [address] 99209- 8794 Dec, [facility] [id number] [place] [address] 63621- 0461 November, 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 ; Generalized anxiety disorder 300.02 ; 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.00 and 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 [facility] [id number] [place] [address] 34425- 1458 Oct, [facility] [id number] [place] [address] 09681- 4915 Oct, [facility] [id number] [place] [address] 98396- 7843 Sep, [facility] [id number] [place] [address] 752974- 5373 Sep, [facility] [id number] [address] [address] Aug, [facility] [address] [facility] [id number] [place] [address]- 5556 Aug, [facility] [place] [facility] [address] [id number] [place] [address]- 6688 Jun, [facility] [place] [facility] [address] [id number] [place] [address]- 2546 Jun, [facility] [place] [facility] [address] [id number] [place] [address]- 4016 May, [facility] [place] [facility] [address] [id number] [place] [address]- 2546 May, [facility] [place] [facility] [address] [id number] [place] [address]- 3713 Apr, [facility] [place] [facility] [address] [id number] [place] [address]- 9626 Apr, [facility] [place] [facility] [address] [id number] [place] [address]- 1701 Jan, [facility] [place] [facility] [address] [id number] [place] [address]- 7533 Jan, [facility] [place] [facility] [address] [id number] [place] [address]- 8706 November, [facility] [place] [facility] [address] [id number] [place] [address]- 5946 November, [facility] [place] [facility] [address] [id number] [place] [address]- 2406 November, [facility] [place] [facility] [address] [id number] [place] [address]- 9466 November, [facility] [place] [facility] [address] [id number] [place] [address]- 8336 Oct, [facility] [place] [facility] [address] [id number] [place] [address]- 4006 Oct, [facility] [place] [facility] [address] [id number] [place] [address]- 7975 Oct, [facility] [place] [facility] [address] [id number] [place] [address]- 4227 Oct, [facility] [place] [facility] [address] [id number] [place] [address]- 3292 Sep, [facility] [place] [facility] [address] [id number] [place] [address]- 7163 Sep, [facility] [place] [facility] [address] [id number] [place] [address]- 7691 Sep, [facility] [place] [facility] [address] [id number] [place] [address]- 1781 Sep, [facility] [place] [facility] [address] [id number] [place] [address]- 0573 Sep, [facility] [place] [facility] [address] [id number] [place] [address]- 9498 Sep, [facility] [place] [facility] [address] [id number] [place] [address]- 6976 Sep, [facility] [place] [facility] [address] [id number] [place] [address]- 2193 Sep, [facility] [place] [facility] [address] [id number] [place] [address]- 6744 Sep, [facility] [place] [facility] [address] [id number] [place] [address]- 5765 Aug, [facility] [place] [facility] [address] [id number] [place] [address]- 4753 Aug, [facility] [place] [facility] [address] [id number] [place] [address]- 9713 Aug, [facility] [place] [facility] [address] [id number] [place] [address]- 3896 Aug, [facility] [place] [facility] [address] [id number] [place] [address]- 9729 Aug, [facility] [place] [facility] [address] [address]- 5396 Aug, [facility] [address] [place] [address] 82237- 7396 Aug, [facility] [address] [address]- 1079 Aug, [facility] [address] [place] [address] 16553- 0965 Aug, 2013 [facility] [address] [place] [address] 21727- 9679 Aug, [facility] [id number] [place] [address] 69389- 5341 Aug, [facility] [id number] [place] [address] 93157- 6738 Aug, [facility] [id number] [place] [address] 41596- 7918 Oct, [facility] [id number] [place] [address] 28679- 3800 November, [facility] [id number] [place] [address] 33528- 6786 May, [facility] [address] [address]- 0560 Jan, [facility] [address] [address]- 8901 May, IMMUNIZATIONS No Known Immunizations SOCIAL HISTORY Never Assessed REASON FOR VISIT BH intake WB-MA, contract PLAN OF CARE Activity Details Follow Up 4 Months Reason: VITAL SIGNS Height 73 in 2017-12-05 Weight 229 lbs 2017-12-05 Heart Rate 84 bpm 2017-12-05 Respiratory Rate 20 2017-12-05 BMI 30.21 kg/m2 2017-12-05 Blood pressure systolic 142 mmHg 2017-12-05 Blood pressure diastolic 90 mmHg 2017-12-05 MEDICATIONS Medication Instructions Dosage Frequency Start Date End Date Duration Status Toprol XL 25 MG Orally Once a day for panic 1 tablet Sep, Active Daypro 600 MG Orally 2 times a day 1 tablet 12h November, 30 days Active BuPROPion HCl ER (SR) 150 MG Orally Once a day 1 tablet 24h November, Active Vitamin D3 2000 UNIT Orally Once a day 1 capsule 24h November, Jun, 30 day(s) Active Adderall 10 mg Orally 2 times a day 1 tablet 12h November, Active Zyrtec Allergy 10 mg Orally Once a day for allergies 1 capsule as needed Sep, Active RESULTS No Results PROCEDURES No Known procedures INSTRUCTIONS MEDICATIONS ADMINISTERED No Known Medications MEDICAL (GENERAL) HISTORY Type Description Date Medical History Vasectomy Medical History 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; [facility]; [facility]
--- OUTSIDE RECORDS SUMMARY | 2018-09-21 09:28 | XMS REPORT ---
Author Author RUFUS NOBLES 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 Active 71710371 Problem Hypertension, benign I10 Active 20471913 Problem Panic disorder F41.0 Active 127939979 Problem Generalized anxiety disorder F41.1 Active 70654064 Problem ADHD, predominantly inattentive type F90.0 Active 88322541 Problem Nicotine addiction F17.200 Active 67094069 Problem Mild intellectual disability F70 Active 06969981 ALLERGIES No Information ENCOUNTERS Encounter Location Date Diagnosis [facility] [id number] [place] [address] 29272- 2439 Apr, [facility] [id number] [place] [address] 58220- 9205 Mar, [facility] [id number] [place] [address] 58998- 2251 Feb, [facility] [id number] [place] [address] 24500- 3101 Jan, [facility] [id number] [place] [address] 20697- 5745 Jan, Nicotine addiction F17.200 [facility] [address] [address] 3249 Jan, [facility] [address] [address]- 2299 Dec, [place] [id number] [place] [address] 78456- 3485 November, [place] [id number] [place] [address] 63371- 5422 November, Panic disorder F41.0 ; Generalized anxiety disorder F41.1 ; ADHD, predominantly inattentive type F90.0 ; Mild intellectual disability F70 and Nicotine addiction F17.200 [place] [id number] [place] [address] 49584- 5568 November, Hypertension, benign I10 and Swelling of knee joint, left M25.462 [place] [id number] [place] [address] 44959- 2024 November, Hypertension, benign I10 [place] [id number] [place] [address] 76457- 9150 November, Hypertension, benign I10 [place] [id number] [place] [address] 38844- 6051 November, Hypertension, benign I10 ; Visit for TB skin test Z11.1 and Encounter for immunization Z23 [place] [id number] [place] [address] 37230- 0508 Mar, [place] [id number] [place] [address] 31847- 9291 Feb, [place] [id number] [place] [address] 56850- 7524 November, Generalized anxiety disorder F41.1 ; ADHD, predominantly inattentive type F90.0 ; Mild intellectual disability F70 and Nicotine addiction F17.200 [place] [address] [address]- 8425 Sep, Generalized anxiety disorder F41.1 ; ADHD, predominantly inattentive type F90.0 ; Mild intellectual disability F70 and Other seasonal allergic rhinitis J30.2 [place] [address] [address]- 9876 Aug, [facility] [id number] [place] [address] 27307 -5976 Jul, Acute suppurative otitis media of right ear without spontaneous rupture of tympanic membrane, recurrence not specified H66.001 and Other seasonal allergic rhinitis J30.2 [facility] [address] [place] [address] 52500- 1782 Jul, ADHD, predominantly inattentive type F90.0 and Generalized anxiety disorder F41.1 [place] [id number] [place] [address] 28621- 0230 Jul, [facility] [id number] [place] [address] 40443- 3599 Jun, ADHD, predominantly inattentive type F90.0 and Generalized anxiety disorder F41.1 [place] [id number] [place] [address] 27716- 7405 Jun, ADHD, predominantly inattentive type F90.0 ; Generalized anxiety disorder F41.1 and Mild intellectual disability F70 [id number] [id number] May, Dental examination Z01.20 and Generalized chronic periodontitis K05.32 [place] [id number] [place] [address] 88743- 6510 May, ADHD, predominantly inattentive type F90.0 and Generalized anxiety disorder F41.1 [facility] [id number] [place] [address] 58940- 7754 May, [place] [id number] [place] [address] 45604- 3892 Apr, [facility] [address] [place] [address] 80491- 4349 Apr, Generalized anxiety disorder F41.1 ; Attention deficit disorder F90.0 and Mild mental retardation F70 [place] [address] [address] 0462 Apr, [facility] [id number] [place] [address] 30684- 5829 Apr, ADHD, predominantly inattentive type F90.0 and Generalized anxiety disorder F41.1 [facility] [id number] [place] [address] 907353- 1986 Feb, 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.00 and Anxiety state, unspecified 300.00 [facility] [id number] [place] [address] 38411- 4696 Feb, [facility] [id number] [place] [address] 74648- 7050 Jan, [facility] [id number] [place] [address] 49533- 0877 Jan, 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.00 ; Anxiety state, unspecified 300.00 and 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 [facility] [address] [place] [address] 68912- 2410 Jan, [facility] [id number] [place] [address] 44879- 3785 Dec, [facility] [address] [address]- 7211 November, 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 ; Generalized anxiety disorder 300.02 ; 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.00 and 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 [facility] [address] [address]- 8611 Oct, [facility] [id number] [place] [address] [id number]- 8816 Oct, [facility] [address] 4597 Sep, [facility] [id number] [place] [address] 18665- 6319 Sep, [facility] [place] [facility] [address] [id number] [place] [address]- 2436 Aug, [facility] [place] [facility] [address] [id number] [place] [address]- 3136 Aug, [facility] [place] [facility] [address] [id number] [place] [address]- 5309 Jun, [facility] [place] [facility] [address] [id number] [place] [address]- 1132 Jun, [facility] [place] [facility] [address] [id number] [place] [address]- 4687 May, [facility] [place] [facility] [address] [id number] [place] [address]- 9670 May, [facility] [place] [facility] [address] [id number] [place] [address]- 6317 Apr, [facility] [place] [facility] [address] [id number] [place] [address]- 2645 Apr, [facility] [place] [facility] [address] [id number] [place] [address]- 3401 Jan, [facility] [place] [facility] [address] [id number] [place] [address]- 4991 Jan, [facility] [place] [facility] [address] [id number] [place] [address]- 0778 November, [facility] [place] [facility] [address] [id number] [place] [address]- 2347 November, [facility] [place] [facility] [address] [id number] [place] [address]- 6679 November, [facility] [place] [facility] [address] [id number] [place] [address]- 7906 November, [facility] [place] [facility] [address] [id number] [place] [address]- 7467 Oct, [facility] [place] [facility] [address] [id number] [place] [address]- 5093 Oct, [facility] [address] [id number] [place] [address]- 3296 Oct, [facility] [place] [facility] [address] [id number] [place] [address]- 7496 Oct, [facility] [address] [id number] [place] [address]- 2591 Sep, [facility] [place] [facility] [address] [id number] [place] [address]- 4242 Sep, [facility] [place] [facility] [address] [id number] [place] [address]- 8925 Sep, [facility] [place] [facility] [address] [id number] [place] [address]- 6945 Sep, [facility] [place] [facility] [address] [id number] [place] [address]- 9265 Sep, [facility] [address] [id number] [place] [address]- 9527 Sep, [facility] [place] [facility] [address] [id number] [place] [address]- 9970 Sep, [facility] [address] [id number] [place] [address]- 3018 Sep, [facility] [place] [facility] [address] [id number] [place] [address]- 9403 Sep, [facility] [place] [facility] [address] [id number] [place] [address]- 1022 Aug, [facility] [place] [facility] [address] [id number] [place] [address]- 7181 Aug, [facility] [place] [facility] [address] [id number] [place] [address]- 2626 Aug, [facility] [place] [facility] [address] [id number] [place] [address]- 3286 Aug, [facility] [address] [address]- 1077 Aug, [facility] [address] [address]- 5286 Aug, [facility] [address] 7888 Aug, [facility] [address] 9640 Aug, [facility] [address] [address]- 3809 Aug, [facility] [id number] [place] [address] 88030- 2985 Aug, [facility] [id number] [place] [address] 47805- 3244 Aug, [facility] [address] [address]- 2213 Aug, [facility] [id number] [place] [address] 48238- 3957 Oct, [facility] [address] [address]- 1976 November, [facility] [address] [address]- 9904 May, [facility] [address] [address]- 5256 Jan, [facility] [address] [address]- 6327 May, IMMUNIZATIONS No Known Immunizations SOCIAL HISTORY Never Assessed REASON FOR VISIT adderall 01/21/2018 PLAN OF CARE VITAL SIGNS MEDICATIONS Medication Instructions Dosage Frequency Start Date End Date Duration Status Adderall 10 mg Orally 2 times a day 1 tablet 12h Jan, 28 days Active RESULTS No Results PROCEDURES No Known procedures INSTRUCTIONS MEDICATIONS ADMINISTERED No Known Medications MEDICAL (GENERAL) HISTORY Type Description Date Medical History Vasectomy Medical History 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
--- OUTSIDE RECORDS SUMMARY | 2018-09-21 09:28 | XMS REPORT ---
Author Author DAYAMI HOLGUIN Organization [facility] Address [address] [place] [address] Care Team Providers Care Gas Appliance Installer Name Role Phone DAYAMI HOLGUIN Unavailable PROBLEMS Type Condition ICD9-CM Code [id number] Code Onset Dates Condition Status SNOMED Code Problem 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.00 Active 02484527 Problem Generalized anxiety disorder 300.02 Active 61532237 Problem Nondependent tobacco use disorder 305.1 Active 611683545 Problem Routine general medical examination at health care facility V70.0 Active 295958562 Problem 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 Active 63755720 Problem Hypertension, benign I10 Active 12793936 Problem Panic disorder F41.0 Active 534415441 Problem Generalized anxiety disorder F41.1 Active 84999220 Problem ADHD, predominantly inattentive type F90.0 Active 38148356 Problem Nicotine addiction F17.200 Active 24974314 Problem Mild intellectual disability F70 Active 40027240 ALLERGIES No Information ENCOUNTERS Encounter Location Date Diagnosis [facility] [address] [place] [address] 42567- 1579 Mar, [facility] [address] [address]- 3845 Jan, [facility] [address] [place] [address] 20548- 8086 Jan, Nicotine addiction F17.200 [facility] [address] [address]- 2768 Jan, [facility] [id number] [place] [address] 51117- 4174 Dec, [facility] [address] [address]- 7935 November, [facility] [id number] [place] [address] 09966- 3921 November, Panic disorder F41.0 ; Generalized anxiety disorder F41.1 ; ADHD, predominantly inattentive type F90.0 ; Mild intellectual disability F70 and Nicotine addiction F17.200 [facility] [id number] [place] [address] 64285- 5171 November, Hypertension, benign I10 and Swelling of knee joint, left M25.462 [place] [id number] [place] [address] 56407- 9192 November, Hypertension, benign I10 [place] [address] 65057- 9869 November, Hypertension, benign I10 [place] [id number] [place] [address] 52879- 7943 November, Visit for TB skin test Z11.1 ; Hypertension, benign I10 and Encounter for immunization Z23 [place] [id number] [place] [address] 70175- 6236 Mar, [place] [id number] [place] [address] 87694- 3979 Feb, [place] [id number] [place] [address] 97233- 8098 November, Generalized anxiety disorder F41.1 ; ADHD, predominantly inattentive type F90.0 ; Mild intellectual disability F70 and Nicotine addiction F17.200 [place] [id number] [place] [address] 89046- 9415 Sep, Generalized anxiety disorder F41.1 ; ADHD, predominantly inattentive type F90.0 ; Mild intellectual disability F70 and Other seasonal allergic rhinitis J30.2 [place] [id number] [place] [address] 35373- 4789 Aug, [facility] [address] [place] [address] 15142 -8447 Jul, Acute suppurative otitis media of right ear without spontaneous rupture of tympanic membrane, recurrence not specified H66.001 and Other seasonal allergic rhinitis J30.2 [facility] [address] [place] [address] 37308- 5621 Jul, ADHD, predominantly inattentive type F90.0 and Generalized anxiety disorder F41.1 [place] [address] [place] [address] 03370- 0658 Jul, [place] [id number] [place] [address] 47428- 1251 Jun, ADHD, predominantly inattentive type F90.0 and Generalized anxiety disorder F41.1 [place] [id number] [place] [address] 35102- 1410 Jun, ADHD, predominantly inattentive type F90.0 ; Generalized anxiety disorder F41.1 and Mild intellectual disability F70 [address] [id number] May, Dental examination Z01.20 and Generalized chronic periodontitis K05.32 [place] [id number] [place] [address] 92987- 2235 May, ADHD, predominantly inattentive type F90.0 and Generalized anxiety disorder F41.1 [place] [address] [place] [address] 04941- 1380 May, [place] [id number] [place] [address] 90110- 1859 Apr, [place] [id number] [place] [address] 93296- 8203 Apr, Generalized anxiety disorder F41.1 ; Attention deficit disorder F90.0 and Mild mental retardation F70 [place] [id number] [place] [address] 99174- 7608 Apr, [facility] [address] [place] [address] 36453- 8666 Apr, ADHD, predominantly inattentive type F90.0 and Generalized anxiety disorder F41.1 [facility] [address] 3021 Feb, 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.00 and Anxiety state, unspecified 300.00 [facility] [address] 9796 Feb, [facility] [address] 1659 Jan, [facility] [address] 9227 Jan, 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.00 ; Anxiety state, unspecified 300.00 and 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 [facility] [address] 6804 Jan, [facility] [address] 3619 Dec, [facility] [address] [address]- 4747 November, 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 ; Generalized anxiety disorder 300.02 ; 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.00 and 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 [facility] [address] [address]- 3546 Oct, [facility] [address] [address]- 4548 Oct, [facility] [address]- 6970 Sep, [facility] [address] 8100 Sep, [facility] [address] 5746 Aug, [facility] [address] 6720 Aug, [facility] [place] [facility] [address] [id number] [place] [address]- 2759 Jun, [facility] [place] [facility] [address] [id number] [place] [address]- 1865 Jun, [facility] [place] [facility] [address] [id number] [place] [address]- 4162 May, [facility] [place] [facility] [address] [id number] [place] [address]- 7440 May, [facility] [place] [facility] [address] [id number] [place] 2069 Apr, [facility] [place] [facility] [address] [id number] [place] [address]- 0766 Apr, [facility] [place] [facility] [address] [id number] [place] [address]- 0636 Jan, [facility] [place] [facility] [address] [id number] [place] [address]- 6995 Jan, [facility] [place] [facility] [address] [id number] [place] [address]- 6824 November, [facility] [place] [facility] [address] [id number] [place] [address]- 5902 November, [facility] [place] [facility] [address] [id number] [place] [address]- 9729 November, [facility] [place] [facility] [address] [id number] [address]- 4102 November, [facility] [place] [facility] [address] [id number] [place] [address]- 9696 Oct, [facility] [place] [facility] [address] [id number] [place] [address]- 2142 Oct, [facility] [place] [facility] [address] [id number] [place] [address]- 4928 Oct, [facility] [place] [facility] [address] [id number] [place] [address]- 4675 Oct, [facility] [place] [facility] [address] [id number] [place] [address]- 6094 Sep, [facility] [place] [facility] [address] [id number] [place] [address]- 2256 Sep, [facility] [place] [facility] [address] [id number] [place] [address]- 5539 Sep, [facility] [place] [facility] [address] [id number] [place] [address]- 4926 Sep, [facility] [place] [facility] [address] [id number] [place] [address]- 5058 Sep, [facility] [place] [facility] [address] [id number] [place] [address]- 5329 Sep, [facility] [place] [facility] [address] [id number] [place] [address]- 3202 Sep, [facility] [place] [facility] [address] [id number] [place] [address]- 7118 Sep, [facility] [place] [facility] [address] [id number] [place] [address]- 5477 Sep, [facility] [place] [facility] [address] [facility] [id number] [place] [address]- 1357 Aug, [facility] [place] [facility] [address] [id number] [place] [address] Aug, [facility] [place] [facility] [address] [id number] [place] [address] Aug, [facility] [place] [facility] [address] [id number] [place] [address] Aug, [facility] [place] [facility] [address] [id number] [place] [address] Aug, [facility] [place] [facility] [address] [id number] [place] [address] Aug, [facility] [id number] [address] Aug, [facility] [id number] [address] Aug, [facility] [address] [address] Aug, [facility] [id number] [address] Aug, [facility] [id number] [address] Aug, [facility] [id number] [address] Aug, [facility] [address] [address] Oct, [facility] [address] [address] November, [facility] [id number] [address] May, [facility] [address] [address] Jan, [facility] [id number] [address] May, IMMUNIZATIONS No Known Immunizations SOCIAL HISTORY Never Assessed REASON FOR VISIT Oxaprozin note/ PLAN OF CARE VITAL SIGNS MEDICATIONS Medication Instructions Dosage Frequency Start Date End Date Duration Status Daypro 600 MG Orally 2 times a day 1 tablet 12h November, 30 days Active RESULTS No Results PROCEDURES No Known procedures INSTRUCTIONS MEDICATIONS ADMINISTERED No Known Medications MEDICAL (GENERAL) HISTORY Type Description Date Medical History Vasectomy Medical History 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
--- OUTSIDE RECORDS SUMMARY | 2018-09-21 09:28 | XMS REPORT ---
Author Author HUBER YANELY [facility] Address [address] [place] [address] Care Team Providers Care Green Chain Puller Name Role Phone CARLAVALERIY YANELY Unavailable PROBLEMS Type Condition ICD9-CM Code DSJ19-MC Code Onset Dates Condition Status SNOMED Code Problem 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.00 Active 45282418 Problem Generalized anxiety disorder 300.02 Active 30097367 Problem Nondependent tobacco use disorder 305.1 Active 215777424 Problem Routine general medical examination at health care facility V70.0 Active 644997316 Problem 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 Active 16852987 Problem Hypertension, benign I10 Active 47033985 Problem Panic disorder F41.0 Active 504787186 Problem Generalized anxiety disorder F41.1 Active 27824502 Problem ADHD, predominantly inattentive type F90.0 Active 81325955 Problem Nicotine addiction F17.200 Active 79242216 Problem Mild intellectual disability F70 Active 93401831 ALLERGIES No Information ENCOUNTERS Encounter Location Date Diagnosis [facility] [id number] [place] [address] 81124- 5943 Mar, [facility] [id number] [place] [address] 96446- 8377 Jan, [facility] [id number] [place] [address] 82628- 2508 Jan, Nicotine addiction F17.200 [facility] [id number] [place] [address] 46875- 6787 Jan, [facility] [id number] [place] [address] 49440- 9590 Dec, [facility] [id number] [place] [address] 92925- 7427 November, [facility] [id number] [place] [address] 53864- 0378 November, Panic disorder F41.0 ; Generalized anxiety disorder F41.1 ; ADHD, predominantly inattentive type F90.0 ; Mild intellectual disability F70 and Nicotine addiction F17.200 [facility] [id number] [place] [address] 43416- 9554 November, Hypertension, benign I10 and Swelling of knee joint, left M25.462 [facility] [id number] [place] [address] 96593- 7155 November, Hypertension, benign I10 [facility] [facility] [address] 54075- 9359 November, Hypertension, benign I10 [facility] [id number] [place] [address] 13090- 0952 November, Visit for TB skin test Z11.1 ; Hypertension, benign I10 and Encounter for immunization Z23 [facility] [id number] [place] [address] 87972- 6985 Mar, [facility] [id number] [place] [address] 49199- 4897 Feb, [facility] [id number] [place] [address] 61237- 0809 November, Generalized anxiety disorder F41.1 ; ADHD, predominantly inattentive type F90.0 ; Mild intellectual disability F70 and Nicotine addiction F17.200 [facility] [id number] [place] [address] 08556- 1869 Sep, Generalized anxiety disorder F41.1 ; ADHD, predominantly inattentive type F90.0 ; Mild intellectual disability F70 and Other seasonal allergic rhinitis J30.2 [facility] [id number] [place] [address] 78999- 9031 Aug, [facility] [id number] [place] [address] 89050 -7637 Jul, Acute suppurative otitis media of right ear without spontaneous rupture of tympanic membrane, recurrence not specified H66.001 and Other seasonal allergic rhinitis J30.2 [facility] [id number] [place] [address] 96129- 0679 Jul, ADHD, predominantly inattentive type F90.0 and Generalized anxiety disorder F41.1 [facility] [id number] [place] [address] 74729- 4822 Jul, [facility] [id number] [place] [address] 78552- 8419 Jun, ADHD, predominantly inattentive type F90.0 and Generalized anxiety disorder F41.1 [facility] [id number] [place] [address] 89041- 7397 Jun, ADHD, predominantly inattentive type F90.0 ; Generalized anxiety disorder F41.1 and Mild intellectual disability F70 [id number] [id number] May, Dental examination Z01.20 and Generalized chronic periodontitis K05.32 [facility] [id number] [place] [address] 10960- 1902 May, ADHD, predominantly inattentive type F90.0 and Generalized anxiety disorder F41.1 [facility] [id number] [place] [address] 74179- 9866 May, [facility] [id number] [place] [address] 29855- 3727 Apr, [facility] [id number] [place] [address] 09528- 5866 Apr, Generalized anxiety disorder F41.1 ; Attention deficit disorder F90.0 and Mild mental retardation F70 [facility] [id number] [place] [address] 37414- 0426 Apr, [facility] [facility] [id number] [place] [address] 25708- 7801 Apr, ADHD, predominantly inattentive type F90.0 and Generalized anxiety disorder F41.1 [facility] [address] [address]- 8691 Feb, 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.00 and Anxiety state, unspecified 300.00 [facility] [address] [address] 1157 Feb, [facility] [id number] [place] [address] 86757- 3187 Jan, [facility] [id number] [place] [address] 09203- 2390 Jan, 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.00 ; Anxiety state, unspecified 300.00 and 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 [facility] [id number] [place] [address] 54879- 3676 Jan, [facility] [id number] [place] [address] 09389- 4401 Dec, [facility] [id number] [place] [address] 84280- 8078 November, 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 ; Generalized anxiety disorder 300.02 ; 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.00 and 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 [facility] [address] [address]- 3549 Oct, [facility] [address] [address]- 6830 Oct, [facility] [address] [address]- 1327 Sep, [facility] [id number] [place] [address] 87593- 9011 Sep, [facility] [address], [place] [address]- 4119 Aug, [facility] [id number] [place] [address] 15112- 2546 Aug, [facility] [place] [facility] [address] [id number] [place] [address]- 4893 Jun, [facility] [place] [facility] [address] [id number] [place] [address]- 3856 Jun, [facility] [place] [facility] [address] [id number] [place] [address]- 7205 May, [facility] [place] [facility] [address] [id number] [place] [address]- 7658 May, [facility] [place] [facility] [address] [id number] [place] [address]- 5058 Apr, [facility] [place] [facility] [address] [id number] [place] [address]- 5395 Apr, [facility] [place] [facility] [address] [id number] [place] [address]- 0816 Jan, [facility] [place] [facility] [address] [id number] [place] [address]- 0148 Jan, [facility] [place] [facility] [address] [id number] [place] [address]- 7117 November, [facility] [place] [facility] [address] [id number] [place] [address]- 9074 November, [facility] [place] [facility] [address] [id number] [place] [address]- 5650 November, [facility] [place] [facility] [address] [id number] [place] [address]- 4582 November, [facility] [place] [facility] [address] [id number] [place] [address]- 2859 Oct, [facility] [place] [facility] [address] [id number] [place] 4304 Oct, [facility] [place] [facility] [address] [id number] [place] [address]- 8609 Oct, [facility] [place] [facility] [address] [id number] [place] [address]- 0753 Oct, [facility] [place] [facility] [address] [id number] [place] [address]- 6153 Sep, [facility] [place] [facility] [address] [id number] [place] [address]- 5824 Sep, [facility] [place] [facility] [address] [id number] [place] [address]- 0784 Sep, [facility] [place] [facility] [address] [id number] [place] [address]- 9229 Sep, [facility] [place] [facility] [address] [id number] [place] [address]- 3060 Sep, [facility] [place] [facility] [address] [id number] [place] [address]- 5884 Sep, [facility] [place] [facility] [address] [id number] [place] [address]- 5350 Sep, [facility] [place] [facility] [address] [id number] [place] [address]- 7720 Sep, [facility] [place] [facility] [address] [id number] [place] [address]- 3047 Sep, [facility] [place] [facility] [address] [id number] [place] [address]- 8894 Aug, [facility] [place] [facility] [address] [id number] [place] [address]- 5710 Aug, [facility] [place] [facility] [address] [id number] [place] [address]- 7412 Aug, [facility] [place] [facility] [address] [id number] [place] [address]- 2541 Aug, [facility] [place] [facility] [address] [id number] [place] [address]- 0363 Aug, [facility] [place] [facility] [address] [id number] [place] [address]- 4491 Aug, [facility] [address], [place] [address]- 5046 Aug, [facility] [address], [place] [address]- 8466 Aug, [facility] [address], [place] [address]- 2546 Aug, [facility] [address], [place] [address]- 2546 Aug, [facility] [address], [place] [address]- 9956 Aug, [facility] [address], [place] [address] 2546 Aug, [facility] [address], [place] [address]- 2336 Oct, [facility] [address], [place] [address]- 1626 November, [facility] [address], [place] [address]- 0516 May, [facility] [address], [place] [address]- 8516 Jan, [facility] [address], [place] [address]- 8968 May, IMMUNIZATIONS No Known Immunizations SOCIAL HISTORY Never Assessed REASON FOR VISIT adderall 12/23/2017 PLAN OF CARE VITAL SIGNS MEDICATIONS Medication Instructions Dosage Frequency Start Date End Date Duration Status Adderall 10 mg Orally 2 times a day 1 tablet 12h Dec, 28 days Active RESULTS No Results PROCEDURES No Known procedures INSTRUCTIONS MEDICATIONS ADMINISTERED No Known Medications MEDICAL (GENERAL) HISTORY Type Description Date Medical History Vasectomy Medical History 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
--- OUTSIDE RECORDS SUMMARY | 2018-09-21 09:29 | XMS REPORT ---
Author Author DAYAMI HOLGUIN Organization 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 [id number] [place] [address] 78784- 1098 Mar, [facility] [address] [address]- 2171 Jan, [facility] [id number] [place] [address] 63985- 9524 Jan, Nicotine addiction F17.200 [facility] [address] [address]- 2456 Jan, [facility] [id number] [place] [address] 90627- 3542 Dec, [facility] [address] [address]- 4311 November, [facility] [id number] [place] [address] 47925- 6489 November, Panic disorder F41.0 ; Generalized anxiety disorder F41.1 ; ADHD, predominantly inattentive type F90.0 ; Mild intellectual disability F70 and Nicotine addiction F17.200 [facility] [id number] [place] [address] 64228- 2864 November, Hypertension, benign I10 and Swelling of knee joint, left M25.462 [facility] [id number] [place] [address] 89173- 4357 November, Hypertension, benign I10 [facility] [address] 07884- 7041 November, Hypertension, benign I10 [facility] [id number] [place] [address] 74823- 0392 November, Hypertension, benign I10 ; Visit for TB skin test Z11.1 and Encounter for immunization Z23 [facility] [id number] [place] [address] 53343- 2963 Mar, [facility] [id number] [place] [address] 81363- 0433 Feb, [facility] [id number] [place] [address] 54690- 3164 November, Generalized anxiety disorder F41.1 ; ADHD, predominantly inattentive type F90.0 ; Mild intellectual disability F70 and Nicotine addiction F17.200 [facility] [id number] [place] [address] 05940- 1924 Sep, Generalized anxiety disorder F41.1 ; ADHD, predominantly inattentive type F90.0 ; Mild intellectual disability F70 and Other seasonal allergic rhinitis J30.2 [facility] [id number] [place] [address] 68214- 4069 Aug, [facility] [address] [place] [address] 18945 -2707 Jul, Acute suppurative otitis media of right ear without spontaneous rupture of tympanic membrane, recurrence not specified H66.001 and Other seasonal allergic rhinitis J30.2 [facility] [address] [place] [address] 47021- 7349 Jul, ADHD, predominantly inattentive type F90.0 and Generalized anxiety disorder F41.1 [facility] [address] [place] [address] 54654- 7510 Jul, [facility] [id number] [place] [address] 26026- 8932 Jun, ADHD, predominantly inattentive type F90.0 and Generalized anxiety disorder F41.1 [facility] [id number] [place] [address] 17390- 7620 Jun, ADHD, predominantly inattentive type F90.0 ; Generalized anxiety disorder F41.1 and Mild intellectual disability F70 [address] [address] May, Dental examination Z01.20 and Generalized chronic periodontitis K05.32 [facility] [id number] [place] [address] 25801- 8095 May, ADHD, predominantly inattentive type F90.0 and Generalized anxiety disorder F41.1 [facility] [address] [place] [address] 09836- 6024 May, [facility] [id number] [place] [address] 25346- 2597 Apr, [facility] [id number] [place] [address] 63019- 0627 Apr, Generalized anxiety disorder F41.1 ; Attention deficit disorder F90.0 and Mild mental retardation F70 [facility] [id number] [place] [address] 15841- 5669 Apr, [facility] [address] [place] [address] 75937- 3188 Apr, ADHD, predominantly inattentive type F90.0 and Generalized anxiety disorder F41.1 [facility] [address] 5432 Feb, 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.00 and Anxiety state, unspecified 300.00 [facility] [address] 3356 Feb, [facility] [id number] 0058 Jan, [facility] [address] 1247 Jan, 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.00 ; Anxiety state, unspecified 300.00 and 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 [facility] [address] 1739 Jan, [facility] [id number] 5099 Dec, 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 [address] [address]- 9356 Oct, [facility] [address] [address]- 6357 Oct, [facility] [address] 8751 Sep, [facility] [address] 6424 Sep, [facility] [address] 3956 Aug, [facility] [address] 8789 Aug, [facility] [place] [facility] [address] [id number] [place] [address]- 1968 Jun, [facility] [place] [facility] [address] [id number] [place] [address]- 7352 Jun, [facility] [place] [facility] [address] [id number] [place] [address]- 3297 May, [facility] [place] [facility] [address] [id number] [place] [address]- 8900 May, [facility] [place] [facility] [address] [id number] [place] 2348 Apr, [facility] [place] [facility] [address] [id number] [place] [address]- 4177 Apr, [facility] [place] [facility] [address] [id number] [place] [address]- 4444 Jan, [facility] [place] [facility] [address] [id number] [place] [address]- 8971 Jan, [facility] [place] [facility] [address] [id number] [place] [address]- 8198 November, [facility] [place] [facility] [address] [id number] [place] [address]- 2384 November, [facility] [place] [facility] [address] [id number] [place] [address]- 9293 November, [facility] [place] [facility] [address] [id number] [address]- 0327 November, [facility] [place] [facility] [address] [id number] [place] [address]- 8252 Oct, [facility] [place] [facility] [address] [id number] [place] [address]- 3301 Oct, [facility] [place] [facility] [address] [id number] [place] [address]- 3512 Oct, [facility] [place] [facility] [address] [id number] [place] [address]- 7146 Oct, [facility] [place] [facility] [address] [id number] [place] [address]- 6502 Sep, [facility] [place] [facility] [address] [id number] [place] [address]- 6136 Sep, [facility] [place] [facility] [address] [id number] [place] [address]- 1391 Sep, [facility] [place] [facility] [address] [id number] [place] [address]- 8034 Sep, [facility] [place] [facility] [address] [id number] [place] [address]- 1378 Sep, [facility] [place] [facility] [address] [id number] [place] [address]- 3473 Sep, [facility] [place] [facility] [address] [id number] [place] [address]- 2511 Sep, [facility] [place] [facility] [address] [id number] [place] [address]- 8227 Sep, [facility] [place] [facility] [address] [id number] [place] [address]- 1971 Sep, [facility] [place] [facility] [address] [facility] [id number] [place] [address]- 5031 Aug, [facility] [place] [facility] [address] [id number] [place] [address]- 6701 Aug, [facility] [place] [facility] [address] [id number] [place] [address] Aug, [facility] [place] [facility] [address] [id number] [place] [address] Aug, [facility] [place] [facility] [address] [id number] [place] [address] Aug, [facility] [place] [facility] [address] [id number] [place] [address] Aug, [facility] [id number] [address] Aug, [facility] [id number] [address] Aug, [facility] [id number] [address] Aug, [facility] [id number] [address] Aug, [facility] [id number] [address] Aug, [facility] [id number] [address] Aug, [facility] [id number] [address] Oct, [facility] [id number] [address] November, [facility] [id number] [address] May, [facility] [id number] [address] Jan, 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
--- OUTSIDE RECORDS SUMMARY | 2018-09-21 09:29 | XMS REPORT ---
Author Author DAYAMI HOLGUIN Organization [facility] Address [address] [place] [address] Care Team Providers Care Radiological Metallurgist Name Role Phone DAYAMI HOLGUIN Unavailable PROBLEMS Type Condition ICD9-CM Code MQO49-IO Code Onset Dates Condition Status SNOMED Code Problem 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.00 Active 92848016 Problem Generalized anxiety disorder 300.02 Active 72259208 Problem Nondependent tobacco use disorder 305.1 Active 862746278 Problem Routine general medical examination at health care facility V70.0 Active 470382676 Problem 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 Active 71730940 Problem Hypertension, benign I10 Active 28117928 Problem Panic disorder F41.0 Active 263710664 Problem Generalized anxiety disorder F41.1 Active 89874084 Problem ADHD, predominantly inattentive type F90.0 Active 92022443 Problem Nicotine addiction F17.200 Active 88437130 Problem Mild intellectual disability F70 Active 15866527 ALLERGIES No Information ENCOUNTERS Encounter Location Date Diagnosis [facility] [id number] [place] [address] 20614- 3264 Mar, [facility] [address], [place] [address] 6347 Jan, [facility] [id number] [place] [address] 88334- 3518 Jan, Nicotine addiction F17.200 [facility] [address], [place] [address] 1763 Jan, [facility] [id number] [place] [address] 28168- 0495 Dec, [facility] [address], [place] [address] 0115 November, [facility] [id number] [place] [address] 45732- 2459 November, Panic disorder F41.0 ; Generalized anxiety disorder F41.1 ; ADHD, predominantly inattentive type F90.0 ; Mild intellectual disability F70 and Nicotine addiction F17.200 [facility] [id number] [place] [address] 61635- 3709 November, Hypertension, benign I10 and Swelling of knee joint, left M25.462 [place] [id number] [place] [address] 82312- 7883 November, Hypertension, benign I10 [place] [address] 83851- 4419 November, Hypertension, benign I10 [place] [id number] [place] [address] 64067- 4520 November, Hypertension, benign I10 ; Visit for TB skin test Z11.1 and Encounter for immunization Z23 [place] [id number] [place] [address] 24092- 7621 Mar, [place] [id number] [place] [address] 80755- 2929 Feb, [facility] [facility] [id number] [place] [address] 97003- 0229 November, Generalized anxiety disorder F41.1 ; ADHD, predominantly inattentive type F90.0 ; Mild intellectual disability F70 and Nicotine addiction F17.200 [place] [id number] [place] [address] 62686- 4828 Sep, Generalized anxiety disorder F41.1 ; ADHD, predominantly inattentive type F90.0 ; Mild intellectual disability F70 and Other seasonal allergic rhinitis J30.2 [place] [id number] [place] [address] 09510- 1115 Aug, [facility] [id number] [place] [address] 67238 -3311 Jul, Acute suppurative otitis media of right ear without spontaneous rupture of tympanic membrane, recurrence not specified H66.001 and Other seasonal allergic rhinitis J30.2 [facility] [id number] [place] [address] 38804- 0281 Jul, ADHD, predominantly inattentive type F90.0 and Generalized anxiety disorder F41.1 [place] [id number] [place] [address] 47969- 0343 Jul, [place] [id number] [place] [address] 39548- 3669 Jun, ADHD, predominantly inattentive type F90.0 and Generalized anxiety disorder F41.1 [place] [id number] [place] [address] 32123- 3403 Jun, ADHD, predominantly inattentive type F90.0 ; Generalized anxiety disorder F41.1 and Mild intellectual disability F70 [address] [id number] May, Dental examination Z01.20 and Generalized chronic periodontitis K05.32 [place] [id number] [place] [address] 16125- 3278 May, ADHD, predominantly inattentive type F90.0 and Generalized anxiety disorder F41.1 [place] [id number] [place] [address] 75031- 2401 May, [place] [id number] [place] [address] 84490- 1076 Apr, [place] [id number] [place] [address] 98035- 5229 Apr, Generalized anxiety disorder F41.1 ; Attention deficit disorder F90.0 and Mild mental retardation F70 [place] [id number] [place] [address] 10037- 4306 Apr, [facility] [id number] [place] [address] 35881- 6221 Apr, ADHD, predominantly inattentive type F90.0 and Generalized anxiety disorder F41.1 [facility] [address] [address]252 Feb, 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.00 and Anxiety state, unspecified 300.00 [facility] [address] 4306 Feb, [facility] [id number] 2776 Jan, [facility] [address] 7380 Jan, 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.00 ; Anxiety state, unspecified 300.00 and 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 [facility] [address] 8227 Jan, [facility] [id number] 1274 Dec, [facility] [address], [place] [address]- 2428 November, 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 ; Generalized anxiety disorder 300.02 ; 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.00 and 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 [facility] [address], [place] [address]- 4591 Oct, [facility] [address], [place] [address]- 9277 Oct, [facility] [address] 7055 Sep, [facility] [address] 1303 Sep, [facility] [address] 1886 Aug, [facility] [address] 9456 Aug, [facility] [place] [facility] [address] [id number] [place] [address]- 6788 Jun, [facility] [place] [facility] [address] [id number] [place] [address]- 0098 Jun, [facility] [place] [facility] [address] [id number] [place] [address]- 9875 May, [facility] [place] [facility] [address] [id number] [place] [address]- 1245 May, [facility] [place] [facility] [address] [id number] [place] 1714 Apr, [facility] [place] [facility] [address] [id number] [place] [address]- 7570 Apr, [facility] [place] [facility] [address] [id number] [place] [address]- 7659 Jan, [facility] [place] [facility] [address] [id number] [place] [address]- 0398 Jan, [facility] [place] [facility] [address] [id number] [place] [address]- 7618 November, [facility] [place] [facility] [address] [id number] [place] [address]- 7327 November, [facility] [place] [facility] [address] [id number] [place] [address]- 1452 November, [facility] [place] [facility] [address] [id number] [address]- 3726 November, [facility] [place] [facility] [address] [id number] [place] [address]- 0678 Oct, [facility] [place] [facility] [address] [id number] [place] [address]- 6515 Oct, [facility] [place] [facility] [address] [id number] [place] [address]- 3975 Oct, [facility] [place] [facility] [address] [id number] [place] [address]- 3893 Oct, [facility] [place] [facility] [address] [id number] [place] [address]- 8318 Sep, [facility] [place] [facility] [address] [id number] [place] [address]- 9496 Sep, [facility] [place] [facility] [address] [id number] [place] [address]- 5807 Sep, [facility] [place] [facility] [address] [id number] [place] [address]- 2086 Sep, [facility] [place] [facility] [address] [id number] [place] [address]- 3899 Sep, [facility] [place] [facility] [address] [id number] [place] [address]- 3445 Sep, [facility] [place] [facility] [address] [id number] [place] [address]- 4089 Sep, [facility] [place] [facility] [address] [id number] [place] [address]- 8795 Sep, [facility] [place] [facility] [address] [id number] [place] [address]- 5626 Sep, [facility] [place] [facility] [address] [facility] [id number] [place] [address]- 4362 Aug, [facility] [place] [facility] [address] [id number] [place] [address]- 6518 Aug, [facility] [place] [facility] [address] [id number] [place] [address]- 1814 Aug, [facility] [place] [facility] [address] [id number] [place] [address]- 6408 Aug, [facility] [place] [facility] [address] [id number] [place] [address]- 9315 Aug, [facility] [place] [facility] [address] [id number] [place] [address]- 9450 Aug, [facility] [address], [place] [address]- 7874 Aug, [facility] [address], [place] [address]- 8096 Aug, [facility] [address], [place] [address]- 7886 Aug, [facility] [address], [place] [address]- 8756 Aug, [facility] [address], [place] [address]- 9640 Aug, [facility] [address], [place] [address]- 4846 Aug, [facility] [address], [place] [address]- 1776 Oct, [facility] [address], [place] [address]- 4303 November, [facility] [address], [place] [address]- 8077 May, [facility] [address], [place] [address]- 0249 Jan, [facility] [address], [place] [address]- 9720 May, IMMUNIZATIONS No Known Immunizations SOCIAL HISTORY Never Assessed REASON FOR VISIT daypro note PLAN OF CARE VITAL SIGNS MEDICATIONS Medication Instructions Dosage Frequency Start Date End Date Duration Status Mobic 7.5 MG Orally twice a day 1 tablet 12h November, Dec, 30 day(s) Active RESULTS No Results PROCEDURES No Known procedures INSTRUCTIONS MEDICATIONS ADMINISTERED No Known Medications MEDICAL (GENERAL) HISTORY Type Description Date Medical History Vasectomy Medical History 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
--- OUTSIDE RECORDS SUMMARY | 2018-09-21 09:29 | XMS REPORT ---
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 Active 61489203 Problem Hypertension, benign I10 Active 25068693 Problem Panic disorder F41.0 Active 953458265 Problem Generalized anxiety disorder F41.1 Active 53128373 Problem ADHD, predominantly inattentive type F90.0 Active 49386386 Problem Nicotine addiction F17.200 Active 23846372 Problem Mild intellectual disability F70 Active 21533513 ALLERGIES No Information ENCOUNTERS Encounter Location Date Diagnosis [facility] [id number] [place] [address] 10154- 4117 Mar, [facility] [address], [place] [address]- 9350 Jan, [facility] [id number] [place] [address] 40207- 0698 Jan, Nicotine addiction F17.200 [facility] [address] [place] [address] 77844- 3641 Jan, [facility] [id number] [place] [address] 18323- 4800 Dec, [facility] [address], [place] [address]- 3179 November, [facility] [id number] [place] [address] 22946- 1688 November, Panic disorder F41.0 ; Generalized anxiety disorder F41.1 ; ADHD, predominantly inattentive type F90.0 ; Mild intellectual disability F70 and Nicotine addiction F17.200 [facility] [id number] [place] [address] 98953- 4932 November, Hypertension, benign I10 and Swelling of knee joint, left M25.462 [place] [id number] [place] [address] 51763- 8108 November, Hypertension, benign I10 [place] [address] 03981- 5184 November, Hypertension, benign I10 [facility] [id number] [place] [address] 91245- 8006 November, Hypertension, benign I10 ; Visit for TB skin test Z11.1 and Encounter for immunization Z23 [facility] [id number] [place] [address] 25361- 5554 Mar, [facility] [facility] [address] 72472- 8651 Feb, [facility] [id number] [place] [address] 18971- 6455 November, Generalized anxiety disorder F41.1 ; ADHD, predominantly inattentive type F90.0 ; Mild intellectual disability F70 and Nicotine addiction F17.200 [place] [id number] [place] [address] 82624- 4831 Sep, Generalized anxiety disorder F41.1 ; ADHD, predominantly inattentive type F90.0 ; Mild intellectual disability F70 and Other seasonal allergic rhinitis J30.2 [place] [id number] [place] [address] 38072- 6278 Aug, [facility] [id number] [place] [address] 34615 -8942 Jul, Acute suppurative otitis media of right ear without spontaneous rupture of tympanic membrane, recurrence not specified H66.001 and Other seasonal allergic rhinitis J30.2 [facility] [address] [place] [address] 96056- 0866 Jul, ADHD, predominantly inattentive type F90.0 and Generalized anxiety disorder F41.1 [place] [id number] [place] [address] 67920- 0802 Jul, [facility] [id number] [place] [address] 89309- 5891 Jun, ADHD, predominantly inattentive type F90.0 and Generalized anxiety disorder F41.1 [place] [id number] [place] [address] 31459- 0354 Jun, ADHD, predominantly inattentive type F90.0 ; Generalized anxiety disorder F41.1 and Mild intellectual disability F70 [address] [address] May, Dental examination Z01.20 and Generalized chronic periodontitis K05.32 [place] [id number] [place] [address] 55749- 9056 May, ADHD, predominantly inattentive type F90.0 and Generalized anxiety disorder F41.1 [place] [address] [place] [address] 95463- 8511 May, [place] [id number] [place] [address] 74263- 5623 Apr, [place] [id number] [place] [address] 19667- 1396 Apr, Generalized anxiety disorder F41.1 ; Attention deficit disorder F90.0 and Mild mental retardation F70 [facility] [address] [place] [address] 13254- 7916 Apr, [facility] [address] [place] [address] 35966- 0641 Apr, ADHD, predominantly inattentive type F90.0 and Generalized anxiety disorder F41.1 [facility] [address], [place] [address]- 6400 Feb, 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.00 and Anxiety state, unspecified 300.00 [facility] [address] 6691 Feb, [facility] [id number] [place] [address] 13939- 0933 Jan, [facility] [id number], [place] [address]- 0551 Jan, 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.00 ; Anxiety state, unspecified 300.00 and 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 [facility] [address], [place] [address]- 9850 Jan, [facility] [id number] [place] [address] 09930- 0142 Dec, [facility] [address], [place] [address]- 0624 November, 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 ; Generalized anxiety disorder 300.02 ; 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.00 and 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 [facility] [address], [place] [address]- 3002 Oct, [facility] [address], [place] [address]- 3587 Oct, [facility] [address], [place] [address]- 8054 Sep, [facility] [id number] 6582 Sep, [facility] [address] 0010 Aug, [facility] [id number] [place] [address] 56492- 7920 Aug, [facility] [place] [facility] [address] [id number] [place] [address]- 4222 Jun, [facility] [place] [facility] [address] [id number] [place] [address]- 3936 Jun, [facility] [place] [facility] [address] [id number] [place] [address]- 4148 May, [facility] [place] [facility] [address] [id number] [place] [address]- 7938 May, [facility] [place] [facility] [address] [id number] [place] [address]- 0233 Apr, [facility] [place] [facility] [address] [id number] [place] [address]- 0159 Apr, [facility] [place] [facility] [address] [id number] [place] [address]- 2818 Jan, [facility] [place] [facility] [address] [id number] [place] [address]- 7577 Jan, [facility] [place] [facility] [address] [id number] [place] [address]- 2286 November, [facility] [place] [facility] [address] [id number] [place] [address]- 7545 November, [facility] [place] [facility] [address] [id number] [place] [address]- 1401 November, [facility] [place] [facility] [address] [id number] [place] [address]- 3975 November, [facility] [place] [facility] [address] [id number] [place] [address]- 2141 Oct, [facility] [place] [facility] [address] [id number] [place] [address]- 0695 Oct, [facility] [place] [facility] [address] [id number] [place] [address]- 1834 Oct, [facility] [place] [facility] [address] [id number] [place] [address]- 7990 Oct, [facility] [address] [id number] [place] [address]- 0446 Sep, [facility] [place] [facility] [address] [id number] [place] [address]- 7946 Sep, [facility] [place] [facility] [address] [id number] [place] [address]- 3979 Sep, [facility] [place] [facility] [address] [id number] [place] [address]- 5700 Sep, [facility] [place] [facility] [address] [id number] [place] [address]- 8778 Sep, [facility] [place] [facility] [address] [id number] [place] [address]- 3053 Sep, [facility] [place] [facility] [address] [id number] [place] [address]- 1336 Sep, [facility] [place] [facility] [address] [id number] [place] [address]- 4465 Sep, [facility] [place] [facility] [address] [id number] [place] [address]- 6470 Sep, [facility] [place] [facility] [address] [id number] [place] [address]- 2349 Aug, [facility] [place] [facility] [address] [id number] [place] [address]- 1709 Aug, [facility] [place] [facility] [address] [id number] [place] [address]- 8243 Aug, [facility] [place] [facility] [address] [id number] [place] [address]- 9916 Aug, [facility] [place] [facility] [address] [id number] [place] [address]- 3666 Aug, [facility] [place] [facility] [address] [id number] [place] [address] Aug, [facility] [id number] [address] Aug, [facility] [id number] [address] Aug, [facility] [id number], [place] [address] Aug, [facility] [id number] [address] Aug, [facility] [id number] [address] Aug, [facility] [id number] [place] [address] Aug, [facility] [id number] [place] [address] Oct, [facility] [id number] [address] November, [facility] [id number], [place] [address] May, [facility] [id number] [address] Jan, [facility] [address] [id number], [place] [address] May, IMMUNIZATIONS No Known Immunizations SOCIAL HISTORY Never Assessed REASON FOR VISIT Refill request PLAN OF CARE VITAL SIGNS MEDICATIONS Unknown Medications RESULTS No Results PROCEDURES No Known procedures INSTRUCTIONS MEDICATIONS ADMINISTERED No Known Medications MEDICAL (GENERAL) HISTORY Type Description Date Medical History Vasectomy Medical History 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
--- OUTSIDE RECORDS SUMMARY | 2018-09-21 09:30 | XMS REPORT ---
Author Author COLLEEN PEÑA e[employer] Address Unknown Phone Unavailable Care Team Providers Care Track Leader Name Role Phone COLLEEN PEÑA CP Unavailable Allergies, Adverse Reactions, Alerts Substance Reaction Event Type N.K.D.A. Info Not Available Non Drug Allergy Problems Problem Type Condition Code Onset Dates Condition Status Assessment Other seasonal allergic rhinitis J30.2 Active Problem Nondependent tobacco use disorder 305.1 Active Assessment Acute suppurative otitis media of right ear without spontaneous rupture of tympanic membrane, recurrence not specified H66.001 Active Problem ADHD, predominantly inattentive type F90.0 Active Problem Generalized anxiety disorder F41.1 Active Problem Mild intellectual disability F70 Active Problem Generalized anxiety disorder 300.02 Active Problem 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.00 Active Problem Routine general medical examination at health care facility V70.0 Active Problem 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 Once in the morning and 1 tablet at 1pm 1 tablet Mucinex [facility] [address]-61 600 MG Orally every 12 hrs Aug 10, 2015 Aug 24, 2015 1 tablet as needed HydrOXYzine HCl [facility] [address]-99 25 MG Orally 2 times a day as needed for anxiety 1 tablet Procedures Procedure Coding System Code Date Office Visit, Est Pt., Level 3 CPT-4 18988 Aug 10, 2015 Vital Signs Date/Time: Aug 10, 2015 Temperature 98.7 F Weight 221.4 lbs Height 73 in BMI 29.21 Index Blood Pressure Diastolic 86 mmHg Blood Pressure Systolic 126 mmHg Cardiac Monitoring Heart Rate 80 bpm Results No Known Results Summary Purpose eClinicalWorks Submission
--- OUTSIDE RECORDS SUMMARY | 2018-09-21 09:30 | XMS REPORT ---
Author Author DOMINGO CH Organization [employer] Address Unknown Phone Unavailable Care Team Providers Care Fabric Worker Fitter Name Role Phone DOMINGO CH CP Unavailable Allergies No Known Allergies Problems Problem Type Condition Code Onset Dates Condition Status Assessment Dental examination Z01.20 Active Assessment Generalized chronic periodontitis K05.32 Active Problem Generalized anxiety disorder F41.1 Active Problem Routine general medical examination at health care facility V70.0 Active Problem ADHD, predominantly inattentive type F90.0 Active Problem 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.00 Active Problem Nondependent tobacco use disorder 305.1 Active Problem 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 Active Problem Generalized anxiety disorder 300.02 Active Medications Medication Code System Code Instructions Start Date End Date Status Dosage [facility] [address]-70 5-325 MG Orally every 6 hrs Jun 13, 2015 1 tablet as needed Procedures Procedure Coding System Code Date INTRAORL-PERIAPICAL 1 FILM 82431 CPT-4 D0220 Jun 13, 2015 EXTRAC ERUPTED TOOTH/EXPOSED ROOT CPT-4 D7140 Jun 13, 2015 LTD ORAL EVALUATION - PROBLEM FOCUS CPT-4 D0140 Jun 13, 2015 Vital Signs Date/Time: Jun 13, 2015 Blood Pressure Diastolic 84 mmHg Blood Pressure Systolic 133 mmHg Results No Known Results Summary Purpose eClinicalWorks Submission
--- OUTSIDE RECORDS SUMMARY | 2018-09-21 09:30 | XMS REPORT ---
Author Author JOSEFINA BAIRES Organization [employer] Address Unknown Phone Unavailable Care Team Providers Care Copper Plate Printer Name Role Phone JOSEFINA BAIRES CP Unavailable Allergies No Known Allergies Problems Problem Type Condition Code Onset Dates Condition Status Assessment Generalized anxiety disorder F41.1 Active Problem Nondependent tobacco use disorder 305.1 Active Assessment ADHD, predominantly inattentive type F90.0 Active Problem ADHD, predominantly inattentive type F90.0 Active Problem Generalized anxiety disorder F41.1 Active Problem Mild intellectual disability F70 Active Problem Generalized anxiety disorder 300.02 Active Problem 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.00 Active Problem Routine general medical examination at health care facility V70.0 Active Problem 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 Active Medications No Known Medications Procedures Procedure Coding System Code Date Psychotherapy, patient &/family, 45 minutes, established patient CPT-4 25541 Jun 30, 2015 Results No Known Results Summary Purpose [employer]ClinicalWorks Submission
--- OUTSIDE RECORDS SUMMARY | 2018-09-21 09:30 | XMS REPORT ---
Author Author RUFUS NOBLES [employer] Address Unknown Phone Unavailable Care Team Providers Care Web Master Name Role Phone RUFUS NOBLES CP Unavailable Allergies, Adverse Reactions, Alerts Substance Reaction Event Type N.K.D.A. 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.00 Active Problem Nondependent tobacco use disorder 305.1 Active Problem Mild intellectual disability F70 Active Problem ADHD, predominantly inattentive type F90.0 Active Problem Nicotine addiction F17.200 Active Problem 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 Active Problem Generalized anxiety disorder 300.02 Active Problem Generalized anxiety disorder F41.1 Active Problem Routine general medical examination at health care facility V70.0 Active Assessment Nicotine addiction F17.200 Active Assessment Mild intellectual disability F70 Active Assessment ADHD, predominantly inattentive type F90.0 Active Medications Medication Code System Code Instructions Start Date End Date Status Dosage BuPROPion HCl (SR) [facility] [address]-15 150 MG Orally Once a day to help stop smoking November 22, 2015 1 tablet Toprol XL [facility] [address]-17 25 MG Orally Once a day for panic September 29, 2015 1 tablet Zyrtec Allergy [facility] [address]-78 10 MG Orally Once a day for allergies September 29, 2015 1 capsule as needed Adderall [facility] [address]-65 10 mg Orally 2 times a day 1 tablet Procedures Procedure Coding System Code Date Office Visit, Est Pt., Level 4 CPT-4 03275 November 22, 2015 Vital Signs Date/Time: November 22, 2015 Cardiac Monitoring Heart Rate 96 bpm Weight 221.5 lbs Height 73 in BMI 29.22 Index Blood Pressure Diastolic 82 mmHg Blood Pressure Systolic 138 mmHg Results No Known Results Summary Purpose [employer]ClinicalWorks Submission
--- OUTSIDE RECORDS SUMMARY | 2018-09-21 09:30 | XMS REPORT ---
Author Author RUFUS NOBLES [employer] Address Unknown Phone Unavailable Care Team Providers Care Cdl B Driver Name Role Phone RUFUS NOBLES CP Unavailable Allergies No Known Allergies Problems Problem Type Condition Code Onset Dates Condition Status Problem Generalized anxiety disorder F41.1 Active Problem [...] Instructions Start Date End Date Status Dosage Adderall [facility] [address]-29 10 MG Orally 2 times a day for ADHD Dr Flores to sign for Maite December 16, 2014 1 tablet Results No Known Results Summary Purpose eClinicalWorks Submission
--- OUTSIDE RECORDS SUMMARY | 2018-09-21 09:30 | XMS REPORT ---
Author Author JOSEFINA BAIRES Organization [employer] Address Unknown Phone Unavailable Care Team Providers Care Coat Fitter Name Role Phone JOSEFINA BAIRES CP Unavailable [...] patient &/family, 45 minutes, established patient CPT-4 70832 Aug 08, 2015 Results No Known Results Summary Purpose eClinicalWorks Submission
--- OUTSIDE RECORDS SUMMARY | 2018-09-21 09:30 | XMS REPORT ---
Author Author JOSEFINA BAIRES Organization [employer] Address Unknown Phone Unavailable Care Team Providers Care Sampler Radioactive Waste Name Role Phone JOSEFINA BAIRES CP Unavailable Allergies No Known Allergies Problems Problem Type Condition ICD-9 Code Onset Dates Condition Status Assessment 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.00 Active Assessment Anxiety state, unspecified 300.00 Active Problem Unspecified episodic mood disorder 296.90 Active Problem 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 Active Problem Routine general medical examination at health care facility V70.0 Active Problem 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
--- OUTSIDE RECORDS SUMMARY | 2018-09-21 09:30 | XMS REPORT ---
Author Author RUFUS NOBLES [employer] Address Unknown Phone Unavailable Care Team Providers Care Salvage Laborer Name Role Phone RUFUS NOBLES CP Unavailable Allergies No Known Allergies Problems Problem Type Condition Code Onset Dates Condition Status Problem Attention deficit disorder of childhood without [...] examination at health care facility V70.0 Active Medications Medication Code System Code Instructions Start Date End Date Status Dosage Adderall [facility] [address]-44 10 mg Orally 2 times a day 1 tablet Results No Known Results Summary Purpose eClinicalWorks Submission
--- OUTSIDE RECORDS SUMMARY | 2018-09-21 09:30 | XMS REPORT ---
Author Author RAFITA CHRISTIAN Organization [employer] Address Unknown Phone Unavailable Care Team Providers Care Raiser Helper Name Role Phone RAFITA CHRISTIAN CP Unavailable Allergies No Known Allergies Problems Problem Type Condition Code Onset Dates Condition Status Problem Nondependent tobacco use disorder 305.1 Active Problem ADHD, predominantly inattentive type F90.0 [...] Start Date End Date Status Dosage Adderall [facility] [address]-46 10 MG Orally 2 times a day. Once in the morning and 1 tablet at 1pm 1 tablet Results No Known Results Summary Purpose eClinicalWorks Submission
--- OUTSIDE RECORDS SUMMARY | 2018-09-21 09:30 | XMS REPORT ---
Author Author RUFUS NOBLES Organization [facility] Address [address] [place] [address] Care Team Providers Care Application Spec Name Role Phone RUFUS NOBLES Unavailable PROBLEMS Type Condition ICD9-CM Code [id number] Code Onset Dates Condition Status SNOMED Code Problem Nondependent tobacco use disorder 305.1 Active 399238706 Problem Generalized anxiety disorder 300.02 Active 57322174 Problem 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.00 Active 91154353 Problem Nicotine addiction F17.200 Active 70007373 Problem Mild intellectual disability F70 Active 66816713 Problem Routine general medical examination at health care facility V70.0 Active 675523835 Problem 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
--- OUTSIDE RECORDS SUMMARY | 2018-09-21 09:30 | XMS REPORT ---
Author Author RUFUS NOBLES [employer] Address Unknown Phone Unavailable Care Team Providers Care Stencil Cutter Machine Name Role Phone RUFUS NOBLES CP Unavailable Allergies, Adverse Reactions, Alerts Substance Reaction Event Type N.K.D.A. Info Not Available Non Drug Allergy Problems Problem Type Condition Code Onset Dates Condition Status Assessment Generalized anxiety disorder F41.1 Active Problem Nondependent tobacco use disorder 305.1 Active Assessment ADHD, predominantly inattentive type F90.0 Active Assessment Mild intellectual disability F70 Active Problem ADHD, [...] Instructions Start Date End Date Status Dosage HydrOXYzine HCl [facility] [address]-21 25 MG Orally 2 times a day as needed for anxiety 1 tablet Adderall [facility] [address]-01 10 MG Orally 1 tab in AM and 1pm for ADHD 1 tablet in the morning Procedures Procedure Coding System Code Date Office Visit, Est Pt., Level 3 CPT-4 62400 Jun 30, 2015 Vital Signs Date/Time: Jun 30, 2015 Cardiac Monitoring Heart Rate 88 bpm Weight 222.3 lbs Height 73 in BMI 29.33 Index Blood Pressure Diastolic 90 mmHg Blood Pressure Systolic 144 mmHg Results No Known Results Summary Purpose eClinicalWorks Submission
--- OUTSIDE RECORDS SUMMARY | 2018-09-21 09:30 | XMS REPORT ---
Author Author DAYAMI HOLGUIN Organization [facility] Address [address] [place] [address] Care Team Providers Care Washcoat Wiper Name Role Phone DAYAMI HOLGUIN Unavailable PROBLEMS Type Condition ICD9-CM Code SXL48-LZ Code Onset Dates Condition Status SNOMED Code Problem 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.00 Active 36147441 Problem Generalized anxiety disorder 300.02 Active 28399076 Problem Nondependent tobacco use disorder 305.1 Active 495419949 Problem Routine general medical examination at health care facility V70.0 Active 324013849 Problem 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 Active 09313493 Problem Hypertension, benign I10 Active 02663080 Problem Panic disorder F41.0 Active 550720703 Problem Generalized anxiety disorder F41.1 Active 66829447 Problem ADHD, predominantly inattentive type F90.0 Active 76803628 Problem Nicotine addiction F17.200 Active 38500244 Problem Mild intellectual disability F70 Active 81998309 ALLERGIES No Known Allergies ENCOUNTERS Encounter Location Date Diagnosis [facility] [id number] [place] [address]3589- 6024 Mar, [facility] [address] [address] Jan, [facility] [address] [place] [address] 29659- 5059 Jan, Nicotine addiction F17.200 [facility] [address] [address] Jan, [facility] [id number] [place] [address] 62349- 0225 Dec, [facility] [address] [address] November, [facility] [id number] [place] [address] 66945- 5627 November, Panic disorder F41.0 ; Generalized anxiety disorder F41.1 ; ADHD, predominantly inattentive type F90.0 ; Mild intellectual disability F70 and Nicotine addiction F17.200 [facility] [id number] [place] [address] 31136- 4558 November, Hypertension, benign I10 and Swelling of knee joint, left M25.462 [facility] [id number] [place] [address] 40867- 3705 November, Hypertension, benign I10 [facility] [address] [address]- [address] November, Hypertension, benign I10 [facility] [id number] [place] [address] 86628- 0695 November, Hypertension, benign I10 ; Visit for TB skin test Z11.1 and Encounter for immunization Z23 [facility] [id number] [place] [address] 65438- 1163 Mar, [facility] [id number] [place] [address] 96658- 8146 Feb, [facility] [id number] [place] [address] 28495- 0268 November, Generalized anxiety disorder F41.1 ; ADHD, predominantly inattentive type F90.0 ; Mild intellectual disability F70 and Nicotine addiction F17.200 [facility] [id number] [place] [address] 23995- 7051 Sep, Generalized anxiety disorder F41.1 ; ADHD, predominantly inattentive type F90.0 ; Mild intellectual disability F70 and Other seasonal allergic rhinitis J30.2 [facility] [id number] [place] [address] 97402- 0480 Aug, [facility] [address] [place] [address] 67955 -2505 Jul, Acute suppurative otitis media of right ear without spontaneous rupture of tympanic membrane, recurrence not specified H66.001 and Other seasonal allergic rhinitis J30.2 [facility] [address] [place] [address] 00086- 2034 Jul, ADHD, predominantly inattentive type F90.0 and Generalized anxiety disorder F41.1 [facility] [address] [place] [address] 23757- 7625 Jul, [facility] [id number] [place] [address] 24682- 3825 Jun, ADHD, predominantly inattentive type F90.0 and Generalized anxiety disorder F41.1 [facility] [id number] [place] [address] 74169- 3851 Jun, ADHD, predominantly inattentive type F90.0 ; Generalized anxiety disorder F41.1 and Mild intellectual disability F70 [address] [id number] May, Dental examination Z01.20 and Generalized chronic periodontitis K05.32 [facility] [address] [place] [address] 42925- 4798 May, ADHD, predominantly inattentive type F90.0 and Generalized anxiety disorder F41.1 [facility] [address] [place] [address] 14585- 9548 May, [facility] [id number] [place] [address] 68872- 2545 Apr, [facility] [id number] [place] [address] 33136- 7313 Apr, Generalized anxiety disorder F41.1 ; Attention deficit disorder F90.0 and Mild mental retardation F70 [facility] [id number] [place] [address] 41539- 8610 Apr, [facility] [address] [place] [address] 02905- 2170 Apr, ADHD, predominantly inattentive type F90.0 and Generalized anxiety disorder F41.1 [facility] [address] [address] [address] Feb, 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.00 and Anxiety state, unspecified 300.00 [facility] [address] Feb, [facility] [id number] [address] Jan, [facility] [address] Jan, 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.00 ; Anxiety state, unspecified 300.00 and 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 [facility] [address] [address] Jan, [facility] [id number] [address] Dec, [facility] [address] November, 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 ; Generalized anxiety disorder 300.02 ; 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.00 and 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 [facility] [address] [address] Oct, [facility] [address] [address] Oct, [facility] [address] [address] Sep, [facility] [address] 3310 Sep, [facility] [address] [address] Aug, [facility] [address] [address] Aug, [facility] [place] [facility] [address] [id number] [place] [address]- 4301 Jun, [facility] [place] [facility] [address] [id number] [place] [address]- 4609 Jun, [facility] [place] [facility] [address] [id number] [place] [address]- 3027 May, [facility] [place] [facility] [address] [id number] [place] [address]- 6827 May, [facility] [place] [facility] [address] [id number] [place] [address]- 5869 Apr, [facility] [place] [facility] [address] [id number] [place] [address]- 6318 Apr, [facility] [place] [facility] [address] [id number] [place] [address]- 2323 Jan, [facility] [place] [facility] [address] [id number] [place] [address]- 5923 Jan, [facility] [place] [facility] [address] [id number] [place] [address]- 9885 November, [facility] [place] [facility] [address] [id number] [place] [address]- 5328 November, [facility] [place] [facility] [address] [id number] [place] [address]- 8961 November, [facility] [place] [facility] [address] [id number] [address] November, [facility] [place] [facility] [address] [id number] [place] [address]- 3177 Oct, [facility] [place] [facility] [address] [id number] [place] [address]- 3124 Oct, [facility] [place] [facility] [address] [id number] [place] [address]- 3319 Oct, [facility] [place] [facility] [address] [id number] [place] [address]- 5775 Oct, [facility] [place] [facility] [address] [id number] [place] [address]- 2382 Sep, [facility] [place] [facility] [address] [id number] [place] [address]- 8936 Sep, [facility] [place] [facility] [address] [id number] [place] [address]- 5520 Sep, [facility] [place] [facility] [address] [id number] [place] [address]- 6735 Sep, [facility] [place] [facility] [address] [id number] [place] [address]- 9691 Sep, [facility] [place] [facility] [address] [id number] [place] [address]- 7658 Sep, [facility] [place] [facility] [address] [id number] [place] [address]- 2452 Sep, [facility] [place] [facility] [address] [id number] [place] [address]- 3416 Sep, [facility] [place] [facility] [address] [id number] [place] [address]- 6932 Sep, [facility] [place] [facility] [address] [facility] [id number] [place] [address]- 5135 Aug, [facility] [place] [facility] [address] [id number] [place] [address]- 7657 Aug, [facility] [place] [facility] [address] [id number] [place] [address]- 7255 Aug, [facility] [place] [facility] [address] [id number] [place] [address]- 2226 Aug, [facility] [place] [facility] [address] [id number] [place] [address]- 9331 Aug, [facility] [place] [facility] [address] [id number] [place] [address]- 6494 Aug, [facility] [address] [address]- 0890 Aug, [facility] [address] [address]- 4726 Aug, [facility] [address] [address]- 4367 Aug, [facility] [id number] [place] [address] 397454- 3230 Aug, [facility] [address] [address]- 5591 Aug, [facility] [id number] [place] [address] 97330- 4346 Aug, [facility] [id number] [place] [address] 33653- 2465 Oct, [facility] [address] [place] [address] 41752- 1270 November, [facility] [address] [place] [address] 05911- 1325 May, [facility] [address] [address]- 4065 Jan, [facility] [address] [address]- 9345 May, IMMUNIZATIONS Vaccine Route Administration Date Status TDAP (BOOSTRIX) IM Intramuscular November 22, 2017 Administered HEP B (PED/ADOL, 3 DOSE) IM Intramuscular November 22, 2017 Administered SOCIAL HISTORY Never Assessed REASON FOR VISIT Establish Care [facility] PLAN OF CARE Activity Details Follow Up 48-72 hours Reason: VITAL SIGNS Height 73 in 2017-11-22 Weight 235 lbs 2017-11-22 Temperature 98.2 degrees Fahrenheit 2017-11-22 Heart Rate 90 bpm 2017-11-22 Respiratory Rate 20 2017-11-22 BMI 31.00 kg/m2 2017-11-22 Blood pressure systolic 138 mmHg 2017-11-22 Blood pressure diastolic 86 mmHg 2017-11-22 MEDICATIONS Medication Instructions Dosage Frequency Start Date End Date Duration Status Adderall 10 mg Orally 2 times a day 1 tablet 12h November, Active Zyrtec Allergy 10 mg Orally Once a day for allergies 1 capsule as needed Sep, Active Daypro 600 MG Orally 2 times a day as directed 12h November, Active BuPROPion HCl ER (SR) 150 MG Orally Once a day 1 tablet 24h November, Active Toprol XL 25 MG Orally Once a day for panic 1 tablet Sep, Active RESULTS No Results PROCEDURES Procedure Date Ordered Result Body Site TB INTRADERMAL 2017-11-22 Negative TB INTRADERMAL TEST November 22, 2017 SINGLE IMMUNIZATION ADMIN November 22, 2017 HEP B (PED/ADOL, 3 DOSE) November 22, 2017 IMMUNIZATION ADMIN, EACH ADD (please include units) November 22, 2017 [facility] VISIT ESTABLISHED PATIENT November 22, 2017 TDAP (BOOSTRIX) November 22, 2017 LAB NOT BILLED [facility] November 22, 2017 INSTRUCTIONS MEDICATIONS ADMINISTERED No Known Medications MEDICAL (GENERAL) HISTORY Type Description Date Medical History Vasectomy Medical History 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
--- OUTSIDE RECORDS SUMMARY | 2018-09-21 09:30 | XMS REPORT ---
Author Author JOSEFINA BAIRES Organization [employer] Address Unknown Phone Unavailable Care Team Providers Care Proof Inspector Name Role Phone JOSEFINA BAIRES CP Unavailable Allergies No Known Allergies Problems Problem Type Condition Code Onset Dates Condition Status Assessment ADHD, predominantly inattentive type F90.0 Active Assessment Generalized anxiety disorder F41.1 Active Problem Generalized anxiety disorder F41.1 Active Problem Routine general medical examination at health care facility V70.0 Active Problem ADHD, predominantly inattentive type F90.0 Active Problem 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.00 Active Problem Nondependent tobacco use disorder 305.1 Active Problem 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 Active Problem Generalized anxiety disorder 300.02 Active Medications No Known Medications Procedures Procedure Coding System Code Date Psychotherapy, patient &/family, 45 minutes, established patient CPT-4 00781 Apr 27, 2015 Results No Known Results Summary Purpose [employer]
--- OUTSIDE RECORDS SUMMARY | 2018-09-21 09:31 | XMS REPORT | Continuity of Care Document ---
Author Author [facility] Address Unknown Phone Unavailable Allergies Active Description Code Type Severity Reaction Onset Reported/Identified Relationship to Patient Clinical Status Yes No Known Drug Allergies [id number] Drug Allergy Unknown N/A 01/24/2015 Medications There is no data. Problems Date Dx Coded Attending Type Code Diagnosis Diagnosed By 07/30/2008 AARTI URRUTIA DDS 465.9 UPPER RESPIRATORY INFECTION 07/30/2008 AARTI URRUTIA DDS V58.69 MEDICATION HIGH RISK 07/30/2008 JUSTINA BAKER APRN 465.9 UPPER RESPIRATORY INFECTION 07/30/2008 JUSTINA BAKER APRN V58.69 MEDICATION HIGH RISK 07/30/2008 DEV CHAPPELL PHD 465.9 UPPER RESPIRATORY INFECTION 07/30/2008 DEV CHAPPELL PHD V58.69 MEDICATION HIGH RISK 07/30/2008 JUSTINA BAKER APRN 465.9 UPPER RESPIRATORY INFECTION 07/30/2008 JUSTINA BAKER APRN V58.69 MEDICATION HIGH RISK 07/30/2008 JUSTINA BAKER APRN 465.9 UPPER RESPIRATORY INFECTION 07/30/2008 JUSTINA BAKER APRN V58.69 MEDICATION HIGH RISK 07/30/2008 JOSEFINA BAIRES PHD 465.9 UPPER RESPIRATORY INFECTION 07/30/2008 JOSEFINA BAIRES PHD V58.69 MEDICATION HIGH RISK 10/18/2009 AARTI URRUTIA DDS 305.01 ALCOHOL ABUSE - CONTINUOUS 10/18/2009 AARTI URRUTIA DDS 314.01 ATTENTION-DEFICIT HYPERACTIVITY DISORDER 10/18/2009 AARTI URRUTIA DDS 719.46 joint pain, localized in the knee 10/18/2009 AARTI URRUTIA DDS V16.1 FAMILY HISTORY OF MALIGNANT NEOPLASM, TRACHEA, BRONCHUS, AND LUNG 10/18/2009 AARTI URRUTIA DDS V68.1 visit for: issue repeat prescription 10/18/2009 JUSTINA BAKER APRN 305.01 ALCOHOL ABUSE - CONTINUOUS 10/18/2009 JUSTINA BAKER APRN 314.01 ATTENTION-DEFICIT HYPERACTIVITY DISORDER 10/18/2009 JUSTINA BAKER APRN 719.46 joint pain, localized in the knee 10/18/2009 JUSTINA BAKER APRNH V16.1 FAMILY HISTORY OF MALIGNANT NEOPLASM, TRACHEA, BRONCHUS, AND LUNG 10/18/2009 JUSTINA BAKER APRN V68.1 visit for: issue repeat prescription 10/18/2009 DEV CHAPPELL PHD 305.01 ALCOHOL ABUSE - CONTINUOUS 10/18/2009 DEV CHAPPELL PHD 314.01 ATTENTION-DEFICIT HYPERACTIVITY DISORDER 10/18/2009 DEV CHAPPELL PHD 719.46 joint pain, localized in the knee 10/18/2009 DEV CHAPPELL PHD V16.1 FAMILY HISTORY OF MALIGNANT NEOPLASM, TRACHEA, BRONCHUS, AND LUNG 10/18/2009 DEV CHAPPELL PHD V68.1 visit for: issue repeat prescription 10/18/2009 OLIVIA FERMINNJUSTNIA 305.01 ALCOHOL ABUSE - CONTINUOUS 10/18/2009 JUSTINA BAKER APRN DUC 314.01 ATTENTION-DEFICIT HYPERACTIVITY DISORDER 10/18/2009 JUSTINA BAKER APRN 719.46 joint pain, localized in the knee 10/18/2009 JUSTINA BAKER APRNH V16.1 FAMILY HISTORY OF MALIGNANT NEOPLASM, TRACHEA, BRONCHUS, AND LUNG 10/18/2009 JUSTINA BAKER APRN V68.1 visit for: issue repeat prescription 10/18/2009 JUSTINA BAKER APRN 305.01 ALCOHOL ABUSE - CONTINUOUS 10/18/2009 JUSTINA BAKER APRN 314.01 ATTENTION-DEFICIT HYPERACTIVITY DISORDER 10/18/2009 JUSTINA BAKER APRN 719.46 joint pain, localized in the knee 10/18/2009 JUSTINA BAKER APRNH V16.1 FAMILY HISTORY OF MALIGNANT NEOPLASM, TRACHEA, BRONCHUS, AND LUNG 10/18/2009 JUSTINA BAKER APRN V68.1 visit for: issue repeat prescription 10/18/2009 JOSEFINA BAIRES PHD 305.01 ALCOHOL ABUSE - CONTINUOUS 10/18/2009 JOSEFINA BAIRES PHD 314.01 ATTENTION-DEFICIT HYPERACTIVITY DISORDER 10/18/2009 JOSEFINA BAIRES PHD 719.46 joint pain, localized in the knee 10/18/2009 JOSEFINA BAIRES PHD V16.1 FAMILY HISTORY OF MALIGNANT NEOPLASM, TRACHEA, BRONCHUS, AND LUNG 10/18/2009 JOSEFINA BAIRES PHD V68.1 visit for: issue repeat prescription 02/02/2010 GHADA LANDEROSS, AARTI Main 847.2 SPRAIN LUMBAR 02/02/2010 OLIVIA BUSTOS, JUSTINA DUC 847.2 SPRAIN LUMBAR 02/02/2010 TA PHD, DEV Main 847.2 SPRAIN LUMBAR 02/02/2010 BAKER HYDRAULIC TECHNICIAN, JUSTINA DUC 847.2 SPRAIN LUMBAR 02/02/2010 BAKER AKASH, JUSTINA DUC 847.2 SPRAIN LUMBAR 02/02/2010 JOSEFINA BAIRES PHD 847.2 SPRAIN LUMBAR 06/13/2010 GHADA LANDEROSS, AARTI Main 724.2 BACK PAIN, LOWER 06/13/2010 GHADA LANDEROSS, AARTI Main V04.81 FLU SHOT 06/13/2010 BAKER HYDRAULIC TECHNICIAN, JUSTINA DUC 724.2 BACK PAIN, LOWER 06/13/2010 BAKER HYDRAULIC TECHNICIAN, JUSTINA DUC V04.81 FLU SHOT 06/13/2010 TA SARKAR, DEV Main 724.2 BACK PAIN, LOWER 06/13/2010 TA SARKAR, DEV Main V04.81 FLU SHOT 06/13/2010 BAKER HYDRAULIC TECHNICIAN, JUSTINA DUC 724.2 BACK PAIN, LOWER 06/13/2010 BAKER HYDRAULIC TECHNICIAN, JUSTINA DUC V04.81 FLU SHOT 06/13/2010 BAKER HYDRAULIC TECHNICIAN, JUSTINA DUC 724.2 BACK PAIN, LOWER 06/13/2010 BAKER HYDRAULIC TECHNICIAN, JUSTINA DUC V04.81 FLU SHOT 06/13/2010 JOSEFINA BAIRES PHD 724.2 BACK PAIN, LOWER 06/13/2010 JOSEFINA BAIRES PHD V04.81 FLU SHOT 12/26/2010 GHADA KUO, AARTI Main 692.9 DERMATITIS CONTACT UNSPECIFIED 12/26/2010 BAKER HYDRAULIC TECHNICIAN, JUSTINA XAVIER 692.9 DERMATITIS CONTACT UNSPECIFIED 12/26/2010 TA SARKAR, DEV Main 692.9 DERMATITIS CONTACT UNSPECIFIED 12/26/2010 JUSTINA BAKER APRN 692.9 DERMATITIS CONTACT UNSPECIFIED 12/26/2010 OLIVIA BUSTOS, JUSTINA XAVIER 692.9 DERMATITIS CONTACT UNSPECIFIED 12/26/2010 VIRY SARKAR, JOSEFINA Ivan 692.9 DERMATITIS CONTACT UNSPECIFIED 09/07/2013 JUSTINA BAKER APRN 296.90 MOOD DISORDER 09/07/2013 OLIVIA FERMINNJUSTINA 300.02 AN GEN ANXIETY 09/07/2013 OLIVIA FERMINNJUSTINA 317 MENTAL RETARDATION-MILD 09/07/2013 OLIVIA FERMINNJUSTINA V70.0 EXAM - ROUTINE H&P 09/07/2013 DEV CHAPPELL PHD 296.90 MOOD DISORDER 09/07/2013 DEV CHAPPELL PHD 300.02 AN GEN ANXIETY 09/07/2013 DEV CHAPPELL PHD 317 MENTAL RETARDATION-MILD 09/07/2013 DEV CHAPPELL PHD V70.0 EXAM - ROUTINE H&P 09/07/2013 JUSTINA BAKER APRN 296.90 MOOD DISORDER 09/07/2013 JUSTINA BAKER APRN 300.02 AN GEN ANXIETY 09/07/2013 OLIVIA BUSTOS, JUSTINA XAVIER 317 MENTAL RETARDATION-MILD 09/07/2013 OLIVIA BUSTOS, JUSTINA XAVIER V70.0 EXAM - ROUTINE H&P 09/07/2013 OLIVIA BUSTOS, JUSTINA XAVIER 296.90 MOOD DISORDER 09/07/2013 OLIVIA FERMINN, JUSTINA XAVIER 300.02 AN GEN ANXIETY 09/07/2013 OLIVIA BUSTOS, JUSTINA XAVIER 317 MENTAL RETARDATION-MILD 09/07/2013 OLIVIA FERMINN, JUSTINA XAVIER V70.0 EXAM - ROUTINE H&P 09/07/2013 JOSEFINA BAIRES PHD 296.90 MOOD DISORDER 09/07/2013 JOSEFINA BAIRES PHD 300.02 AN GEN ANXIETY 09/07/2013 JOSEFINA BAIRES PHD 317 MENTAL RETARDATION-MILD 09/07/2013 JOSEFINA BAIRES PHD V70.0 EXAM - ROUTINE H&P 09/14/2013 DEV CHAPPELL PHD 314.00 ADHD INATTENTIVE 09/14/2013 OLIVIA FERMINJUSTINA Kaminski 314.00 ADHD INATTENTIVE 09/14/2013 OLIVIA BUSTOSJUSTINA 314.00 ADHD INATTENTIVE 09/14/2013 VIRY PHD, JOSEFINA Ivan 314.00 ADHD INATTENTIVE 11/13/2013 BAKER JUSTINA BUSTOS 305.1 NONDEPENDENT TOBACCO USE DISORDER 11/13/2013 OLIVIA BUSTOSJUSTINA 305.1 NONDEPENDENT TOBACCO USE DISORDER 11/13/2013 VIRY PHD, JOSEFINA Ivan 305.1 NONDEPENDENT TOBACCO USE DISORDER 09/13/2014 VIRY PHD, JOSEFINA Ivan 300.00 AN ANXIETY UNSPEC 01/28/2015 AMBROCIO ALEGRIA, SEYMOUR Maguire Ot 214.1 LIPOMA SKIN NEC 02/10/2015 AMBROCIO ALEGRIA, SEYMOUR Maguire Ot 706.2 02/10/2015 AMBROCIO ALEGRIA, SEYMOUR Maguire Ot V72.84 02/10/2015 AMBROCIO ALEGRIA, SEYMOUR Maguire Ot V74.8 06/06/2017 AMBROCIO ALEGRIA, SEYMOUR Maguire Ot 706.2 SEBACEOUS CYST 06/06/2017 AMBROCIO ALEGRIA, SEYMOUR Maguire Ot V72.84 EXAM PRE-OPERATIVE NOS 06/06/2017 AMBROCIO ALEGRIA, SEYMOUR Maguire Ot V74.8 SCREEN-BACTERIAL DIS NEC 06/10/2017 AMBROCIO ALEGRIA, SEYMOUR Maguire Ot 706.2 SEBACEOUS CYST 06/10/2017 AMBROCIO ALEGRIA, SEYMOUR Maguire Ot V72.84 EXAM PRE-OPERATIVE NOS 06/10/2017 AMBROCIO ALEGRIA, SEYMOUR Maguire Ot V74.8 SCREEN-BACTERIAL DIS NEC 06/16/2017 MICHAEL ALEGRIA FACC, ALI FACP CCDS Ot E66.8 OTHER OBESITY 06/16/2017 MICHAEL ALEGRIA FACC, ALI FACP CCDS Ot E78.4 OTHER HYPERLIPIDEMIA 06/16/2017 MICHAEL ALEGRIA FACC, ALI FACP CCDS Ot R07.89 OTHER CHEST PAIN 06/16/2017 MICHAEL ALEGRIA FACC, ALI FACP CCDS Ot Z72.0 TOBACCO USE 07/10/2017 MICHAEL ALEGRIA FACC, ALI FACP CCDS Ot E66.8 OTHER OBESITY 07/10/2017 MICHAEL ALEGRIA FACC, ALI FACP CCDS Ot R07.89 OTHER CHEST PAIN 07/10/2017 MICHAEL ALEGRIA FACC, ALI FACP CCDS Ot R78.4 FINDING OF OTHER DRUGS OF ADDICTIVE POTE 07/10/2017 MICHAEL ALEGRIA FACC, ALI FACP CCDS Ot Z72.0 TOBACCO USE 07/10/2017 MICHAEL ALEGRIA FACC, ALI FACP CCDS Ot E66.8 OTHER OBESITY 07/10/2017 MICHAEL ALEGRIA FACC, ALI FACP CCDS Ot E78.4 OTHER HYPERLIPIDEMIA 07/10/2017 MICHAEL ALEGRIA FACC, ALI FACP CCDS Ot R07.89 OTHER CHEST PAIN 07/10/2017 MICHAEL ALEGRIA FACC, ALI FACP CCDS Ot Z72.0 TOBACCO USE 09/05/2017 MICHAEL ALEGRIA FACC, ALI FACP CCDS Ot E66.8 OTHER OBESITY 09/05/2017 MICHAEL ALEGRIA FACC, ALI FACP CCDS Ot R07.89 OTHER CHEST PAIN 09/05/2017 MICHAEL ALEGRIA FACC, ALI FACP CCDS Ot R78.4 FINDING OF OTHER DRUGS OF ADDICTIVE POTE 09/05/2017 MICHAEL ALEGRIA FACC, ALI FACP CCDS Ot Z72.0 TOBACCO USE 09/05/2017 MICHAEL MORAC, ALI FACP CCDS Ot E66.8 OTHER OBESITY 09/05/2017 MICHAEL ALEGRIA FACC, ALI FACP CCDS Ot R07.89 OTHER CHEST PAIN 09/05/2017 MICHAEL ALEGRIA FACC, ALI FACP CCDS Ot R78.4 FINDING OF OTHER DRUGS OF ADDICTIVE POTE 09/05/2017 MICHAEL ALEGRIA FACC, ALI FACP CCDS Ot Z72.0 TOBACCO USE 09/05/2017 MICHAEL ALEGRIA FACC, ALI FACP CCDS Ot E66.8 OTHER OBESITY 09/05/2017 MICHAEL MORAC, ALI FACP CCDS Ot R07.89 OTHER CHEST PAIN 09/05/2017 MICHAEL ALEGRIA FACC, ALI FACP CCDS Ot R78.4 FINDING OF OTHER DRUGS OF ADDICTIVE POTE 09/05/2017 MICHAEL ALEGRIA FACC, ALI FACP CCDS Ot Z72.0 TOBACCO USE 09/05/2017 MICHAEL ALEGRIA FACC, ALI FACP CCDS Ot E66.8 OTHER OBESITY 09/05/2017 MICHAEL ALEGRIA FACC, ALI FACP CCDS Ot R07.89 OTHER CHEST PAIN 09/05/2017 MICHAEL ALEGRIA FACC, ALI FACP CCDS Ot R78.4 FINDING OF OTHER DRUGS OF ADDICTIVE POTE 09/05/2017 MICHAEL ALEGRIA FACC, ALI FACP CCDS Ot Z72.0 TOBACCO USE 09/05/2017 AMBROCIO ALEGRIA, SEYMOUR Maguire Ot 706.2 SEBACEOUS CYST 09/05/2017 AMBROCIO ALEGRIA, SEYMOUR Maguire Ot V72.84 EXAM PRE-OPERATIVE NOS 09/05/2017 AMBROCIO ALEGRIA, SEYMOUR Maguire Ot V74.8 SCREEN-BACTERIAL DIS NEC 09/05/2017 MICHAEL ALEGRIA FACC, ALI FACP CCDS Ot E66.8 OTHER OBESITY 09/05/2017 MICHAEL ALEGRIA FACC, ALI FACP CCDS Ot R07.89 OTHER CHEST PAIN 09/05/2017 MICHAEL ALEGRIA FACC, ALI FACP CCDS Ot R78.4 FINDING OF OTHER DRUGS OF ADDICTIVE POTE 09/05/2017 MICHAEL ALEGRIA FACC, ALI FACP CCDS Ot Z72.0 TOBACCO USE 09/05/2017 MICHAEL MORAC, ALI FACP CCDS Ot E66.8 OTHER OBESITY 09/05/2017 MICHAEL ALEGRIA FACC, ALI FACP CCDS Ot E78.4 OTHER HYPERLIPIDEMIA 09/05/2017 MICHAEL ALEGRIA FACC, ALI FACP CCDS Ot R07.89 OTHER CHEST PAIN 09/05/2017 MICHAEL ALEGRIA FACC, ALI FACP CCDS Ot Z72.0 TOBACCO USE 10/23/2017 MICHAEL ALEGRIA FACC, ALI FACP CCDS Ot E66.8 OTHER OBESITY 10/23/2017 MICHAEL ALEGRIA FACC, ALI FACP CCDS Ot R07.89 OTHER CHEST PAIN 10/23/2017 MICHAEL ALEGRIA FACC, ALI FACP CCDS Ot R78.4 FINDING OF OTHER DRUGS OF ADDICTIVE POTE 10/23/2017 MICHAEL ALEGRIA FACC, ALI FACP CCDS Ot Z72.0 TOBACCO USE 05/12/2018 MICHAEL MORAC, ALI FACP CCDS Ot E66.8 OTHER OBESITY 05/12/2018 MICHAEL ALEGRIA FACC, ALI FACP CCDS Ot R07.89 OTHER CHEST PAIN 05/12/2018 MICHAEL ALEGRIA FACC, ALI FACP CCDS Ot R78.4 FINDING OF OTHER DRUGS OF ADDICTIVE POTE 05/12/2018 MICHAEL ALEGRIA FACC, ALI FACP CCDS Ot Z72.0 TOBACCO USE Procedures Code [place] [address] PSYCH DIAGNOSTIC EVALUATION 09/14/2013 49209 URINE DRUG SCREEN (IN-HOUSE ) 11/13/2013 49294 UA W/ CULTURE IF INDICATED 11/13/2013 Results There is no data. Encounters ACCT No. Visit Date/Time Discharge Status Pt. Type Provider Facility Loc./Unit Complaint [id number] 09/13/2014 07:59:00 09/13/2014 23:59:59 CLS Outpatient VIRY SARKAR, JOSEFINA Ivan [id number] 11/13/2013 09:58:00 11/13/2013 23:59:59 CLS Outpatient OLIVIA BUSTOS JUSTINA XAVIER [id number] 11/13/2013 09:58:00 11/13/2013 23:59:59 CLS Outpatient OLIVIA BUSTOS JUSTINA DUC [id number] 09/14/2013 13:02:00 09/14/2013 23:59:59 CLS Outpatient TA PHD, DEV Main [id number] 09/07/2013 13:32:00 09/07/2013 23:59:59 CLS Outpatient OLIVIA UBSTOS JUSTINA XAVIER [id number] 07/27/2013 14:29:00 07/27/2013 23:59:59 CLS Outpatient AARTI URRUTIA DDS [id number] 07/29/2018 10:00:00 07/29/2018 23:59:59 CLS Outpatient DAYAMI HOLGUIN APRN [facility] [id number] 09/19/2018 12:42:00 09/19/2018 13:25:00 DIS Emergency SARAH ALEGRIA, LE Alvarado [facility] ER COUGH;CONGESTION [id number] 06/11/2017 08:30:00 06/11/2017 23:59:59 CLS Outpatient GEOVANNA RODRIGUEZ MD, FACC, FACP CCDS [facility] CARD CHEST DISCOMFORT [id number] 06/10/2017 10:57:00 06/10/2017 23:59:59 CLS Outpatient GEOVANNA RODRIGUEZ MD, FACC, FACP CCDS [facility] CARD CHEST DISCOMFORT [id number] 01/28/2015 06:19:00 01/28/2015 11:20:00 DIS Outpatient AMBROCIO ALEGRIA, SEYMOUR Maguire [facility] SDC CYST BACK OF HEAD [id number] 01/24/2015 09:36:00 01/24/2015 23:59:59 CLS Outpatient AMBROCIO ALEGRIA, SEYMOUR Maguire [facility] PREOP CYST BACK OF HEAD [id number] 01/29/2015 03:11:49 ACT Document Registration
--- OUTSIDE RECORDS SUMMARY | 2018-09-21 09:31 | XMS REPORT ---
Author Author RUFUS NOBLES Organization [employer] Address Unknown Phone Unavailable Care Team Providers Care Fire Services Plumber Name Role Phone RUFUS NOBLES CP Unavailable [...] Start Date End Date Status Dosage Adderall [facility] [address]-84 10 MG Orally 2 times a day for ADHD Kira to sign for Maite December 16, 2014 1 tablet Results No Known Results Summary Purpose [employer] Submission
--- OUTSIDE RECORDS SUMMARY | 2018-09-21 09:31 | XMS REPORT ---
Author Author RUFUS NOBLES [employer] Address Unknown Phone Unavailable Care Team Providers Care Senior Maintenance Mechanic Name Role Phone RUFUS NOBLES CP Unavailable Allergies, Adverse Reactions, Alerts Substance Reaction Event Type N.K.D.A. Info Not Available Non Drug Allergy Problems Problem Type Condition Code Onset Dates Condition Status Assessment Mild mental retardation F70 Active Assessment Generalized anxiety disorder F41.1 Active Assessment Attention deficit disorder F90.0 Active Problem Generalized anxiety disorder F41.1 [...] Start Date End Date Status Dosage HydrOXYzine Pamoate [facility] [address]-86 25 MG Orally every 6 hrs as needed for anxiety May 12, 2015 1 capsule as needed Adderall [facility] [address]-83 10 MG Orally 2 times a day for ADHD Kira to sign for Maite December 16, 2014 1 tablet Procedures Procedure Coding System Code Date Office Visit, Est Pt., Level 4 CPT-4 92655 May 12, 2015 Vital Signs Date/Time: May 12, 2015 Cardiac Monitoring Heart Rate 88 bpm Weight 216.0 lbs Height 73 in BMI 28.49 Index Blood Pressure Diastolic 80 mmHg Blood Pressure Systolic 138 mmHg Results No Known Results Summary Purpose [employer] Submission
--- OUTSIDE RECORDS SUMMARY | 2018-09-21 09:31 | XMS REPORT ---
Author Author RUFUS NOBLES [employer] Address Unknown Phone Unavailable Care Team Providers Care Mobile Home Installer Name Role Phone RUFUS NOBLES CP Unavailable [...] Date End Date Status Dosage HydrOXYzine Pamoate [facility] [place] [place] [address]-34 25 MG Orally every 6 hrs as needed for anxiety May 12, 2015 1 capsule as needed Results No Known Results Summary Purpose [employer] Submission
== END 2018-09-19 13:25 | disposition left against medical advice (07) ==
LOC: EDUNIT# 12:40 → ER 12:42
DX: R05 Cough (principal); R09.81 Nasal congestion

== ENCOUNTER → 2021-11-15 | Outpatient (CLI) | payer MEDICARE, MEDICAID | LOC: CARD 11:00 | PROVIDERS: ATTEND Internal Medicine Cardiovascular Disease | DX: I51.7 Cardiomegaly (principal) | CPT/HCPCS: 93306 ==